=== PATIENT | male | born 1965 | race Hispanic/Latino ===

== ENCOUNTER 2017-05-06 21:08 | Emergency (ER) | payer MEDICARE ==
[2017-05-06 22:47] LABS: Hemoglobin 11.6 g/dL (14.0-18.0); Mean Corpuscular HGB CONC 32.7 g/dL (32.0-36.0); Mean Corpuscular Hemoglobin 31.6 pg (27.0-31.0); Mean Corpuscular Volume 96.7 fl (80.0-94.0); RBC Distribution Width 15.2 % (11.5-14.5); Red Blood Cell (RBC) Count 3.66 mill/uL (4.70-6.10); White Blood Cell (WBC) Count 6.1 thou/uL (4.8-10.8)
[2017-05-06 23:07] LABS: #Eosinphils 0.2 thou/uL (0.0-0.7); #Monocytes 0.7 thou/uL (0.11-0.59); #Neutrophils 4.2 thou/uL (1.40-6.50); %Basophils 0.4 % (0.0-1.0); %Eosinophils 2.9 % (0.0-10.0); %Lymphocytes 16.8 % (21.0-51.0); %Monocytes 10.8 % (0.0-10.0); %Neutrophils 69.2 % (42.0-75.0); Mean Platelet Volume 7.7 fL (7.4-10.4); PLT Morphology Comment Appears Decreased; Platelet Count 119 thou/uL (130-400)
[2017-05-06 23:08] LABS: ALT (SGPT) 13 U/L (8-55); AST (SGOT) 18 U/L (5-34); Albumin 4.3 g/dL (3.5-5.0); Alkaline Phosphatase 105 U/L (40-150); Anion Gap 17 mmol/L (10-20); BUN (Urea Nitrogen) 30 mg/dL (8.4-25.7); Bilirubin, Total 1.2 mg/dL (0.2-1.2); Calc. Creatinine Clearance 0 mL/min (70-130); Calcium 8.4 mg/dL (7.8-10.44); Carbon Dioxide 32 mmol/L (22-29); Chloride 94 mmol/L (98-107); Estimated GFR-MDRD 14; Globulin 5.8 g/dL (2.4-3.5); Glucose 102 mg/dL (70-105); Potassium 3.9 mmol/L (3.5-5.1); Protein, Total 10.1 g/dL (6.0-8.3); Sodium 139 mmol/L (136-145)
[2017-05-07] MEDS ORDERED: Lidocaine 1% w/Epinephrine 1:100K 20 ML VIAL ONE (01:15)
--- NOTE | 2017-05-07 08:13 | ULT ---
PRELIMINARY REPORT/[facility]/EMERGENCY AFTER HOURS PROCEDURE: EXAM: US Duplex Left Lower Extremity Veins CLINICAL HISTORY: 51 years old, male; Pain; Other: Lle pain, swelling, +d-dimer TECHNIQUE: Real-time ultrasound scan of the veins of the left lower extremity with color Doppler flow, spectral waveform analysis and compression. COMPARISON: No relevant prior studies available. FINDINGS: Deep veins: Normal. No DVT in the visualized common femoral, femoral, proximal deep femoral or poplit eal veins. The veins demonstrate normal color flow, are normally compressible, with normal phasic hetal w and/or augmentation response. Superficial veins: Normal. No thrombus in the visualized great saphenous vein. Soft tissues: Hypoechoic, nonvascular, complex collection within the superficial aspect of the left m edial thigh measuring 3.4 x 0.8 x 2.2 cm IMPRESSION: 1. No DVT. 2. 3.4 x 0.8 x 2.2 cm hypoechoic, nonvascular complex collection within the superficial aspect of the left medial thigh. Findings may represents sequelae of hematoma. Thank you for allowing us to participate in the care of your patient. Dictated and Authenticated by: Rohith Mary MD 05/07/2017 12:55 AM Central Time ([place] & [place]) FINAL REPORT EMERGENCY AFTER HOURS STUDY ULTRASOUND WITH DOPPLER DUPLEX VENOUS LOWER EXTREMITY LEFT: HISTORY: A 51-year-old male with left lower extremity pain, swelling, and elevated D-dimer. TECHNIQUE: Color flow Doppler, spectral waveform analysis of pulsed Doppler, and ricketts-scale imaging with thalia inderjit and augmentation, were used to evaluate the left common femoral, femoral, popliteal, posterior t ibial, and superficial femoral, veins; and the proximal portions of the profunda femoral and greater saphenous, veins. FINDINGS: There is normal compressibility, demonstration of blood flow by color Doppler and pulsed Doppler, and response to augmentation, in all interrogated veins. There is edema in the soft tissues of the left lower extremity. There is an enlarged lymph node in the left groin. There is an approximately 3.5 x 1 x 2 cm hypoechoic very superficial lesion in the left medial thigh. No internal blood flow withi n it. No major disagreement with the preliminary report by [facility]. IMPRESSION: 1. No deep vein thrombosis in the left lower extremity. 2. A thin, flat hypoechoic lesion in the very superficial soft tissues of the left medial thigh, que stionable for resolving hematoma, but exact etiology uncertain. 3. Edema in the soft tissues of the left lower extremity. arnol[] POS: [facility]
== END 2017-05-07 02:27 | disposition home or self-care (01) ==
LOC: ERS 21:08
DX: L02.416 Cutaneous abscess of left lower limb (principal); E11.22 Type 2 diabetes mellitus with diabetic chronic kidney disease; F41.9 Anxiety disorder, unspecified; E78.5 Hyperlipidemia, unspecified; I11.0 Hypertensive heart disease with heart failure; N18.6 End stage renal disease; G43.909 Migraine, unspecified, not intractable, without status migrainosus; I25.10 Atherosclerotic heart disease of native coronary artery without angina pectoris; Z79.4 Long term (current) use of insulin; Z99.2 Dependence on renal dialysis; Z87.891 Personal history of nicotine dependence; Z86.73 Personal history of transient ischemic attack (TIA), and cerebral infarction without residual deficits
CPT/HCPCS: 10061; 36415; 80053; 85025; 85379; J2001

== ENCOUNTER 2017-06-05 15:35 | Emergency (ER) | payer MEDICARE ==
[2017-06-05] MEDS ORDERED: Morphine 4 MG/ML VIAL ONE (17:01)
[2017-06-05 17:11] LABS: #Basophils 0.1 thou/uL (0.0-0.2); #Eosinphils 0.1 thou/uL (0.0-0.7); #Monocytes 0.8 thou/uL (0.11-0.59); #Neutrophils 4.3 thou/uL (1.40-6.50); %Basophils 1.8 % (0.0-1.0); %Eosinophils 1.4 % (0.0-10.0); %Lymphocytes 15.9 % (21.0-51.0); %Monocytes 13.1 % (0.0-10.0); %Neutrophils 67.8 % (42.0-75.0); Hemoglobin 11.8 g/dL (14.0-18.0); Mean Corpuscular HGB CONC 32.9 g/dL (32.0-36.0); Mean Corpuscular Hemoglobin 31.6 pg (27.0-31.0); Mean Corpuscular Volume 95.9 fl (80.0-94.0); Mean Platelet Volume 8.4 fL (7.4-10.4); Platelet Count 108 thou/uL (130-400); RBC Distribution Width 15.9 % (11.5-14.5); Red Blood Cell (RBC) Count 3.73 mill/uL (4.70-6.10); White Blood Cell (WBC) Count 6.3 thou/uL (4.8-10.8)
--- NOTE | 2017-06-05 17:23 | RAD ---
TWO VIEWS RIGHT FORELEG: Indication: Right leg swelling. FINDINGS: No acute fracture or subluxation is evident. There are prominent Monckeberg calcifications within the soft tissues of the right leg. IMPRESSION: No acute osseous abnormality. POS: [facility]
--- NOTE | 2017-06-05 17:24 | RAD ---
TWO VIEWS OF THE RIGHT ANKLE: Indication: Swelling. FINDINGS: Enthesopathic changes seen at the calcaneus. There is mild tibiotalar osteoarthrosis. There are promi nent Monckeberg calcifications in the soft tissues. There is diffuse swelling of the foreleg and ankl e. IMPRESSION: Soft tissue swelling of the foreleg and ankle. No acute osseous abnormality. POS: [facility]
[2017-06-05 17:28] LABS: ALT (SGPT) 15 U/L (8-55); AST (SGOT) 22 U/L (5-34); Albumin 4.3 g/dL (3.5-5.0); Alkaline Phosphatase 87 U/L (40-150); Anion Gap 20 mmol/L (10-20); BUN (Urea Nitrogen) 63 mg/dL (8.4-25.7); Bilirubin, Total 1.1 mg/dL (0.2-1.2); Calc. Creatinine Clearance 0 mL/min (70-130); Calcium 9.5 mg/dL (7.8-10.44); Carbon Dioxide 29 mmol/L (22-29); Chloride 94 mmol/L (98-107); Estimated GFR-MDRD 7; Globulin 5.9 g/dL (2.4-3.5); Glucose 109 mg/dL (70-105); Lipase 65 U/L (8-78); Magnesium 2.7 mg/dL (1.6-2.6); Potassium 5.5 mmol/L (3.5-5.1); Protein, Total 10.2 g/dL (6.0-8.3); Sodium 137 mmol/L (136-145)
[2017-06-05] MEDS ORDERED: Piperacillin/Tazobactam 3.375 GM in Sodium Chloride 0.9% 100 ML IVPB ONE (17:30)
== END 2017-06-05 19:45 | disposition home or self-care (01) ==
LOC: ERS 15:35
DX: E11.621 Type 2 diabetes mellitus with foot ulcer (principal); L97.519 Non-pressure chronic ulcer of other part of right foot with unspecified severity; L03.115 Cellulitis of right lower limb; I25.10 Atherosclerotic heart disease of native coronary artery without angina pectoris; E78.5 Hyperlipidemia, unspecified; I12.0 Hypertensive chronic kidney disease with stage 5 chronic kidney disease or end stage renal disease; E11.22 Type 2 diabetes mellitus with diabetic chronic kidney disease; N18.6 End stage renal disease; F41.9 Anxiety disorder, unspecified; G43.909 Migraine, unspecified, not intractable, without status migrainosus; Z99.2 Dependence on renal dialysis; Z79.4 Long term (current) use of insulin; Z86.73 Personal history of transient ischemic attack (TIA), and cerebral infarction without residual deficits; Z79.899 Other long term (current) drug therapy
CPT/HCPCS: 80053; 83605; 83690; 83735; 85025; 85652; 86140; 96365; 96367; 96375; J2270; J2543; J3370; J7050

== ENCOUNTER 2017-06-25 23:35 | Inpatient (IN) | payer MEDICARE ==
[2017-06-26 01:02] LABS: #Basophils 0.1 thou/uL (0.0-0.2); #Eosinphils 0.1 thou/uL (0.0-0.7); #Monocytes 0.7 thou/uL (0.11-0.59); #Neutrophils 5.1 thou/uL (1.40-6.50); %Basophils 1.2 % (0.0-1.0); %Eosinophils 1.8 % (0.0-10.0); %Lymphocytes 13.7 % (21.0-51.0); %Monocytes 10.5 % (0.0-10.0); %Neutrophils 72.9 % (42.0-75.0); Hemoglobin 11.2 g/dL (14.0-18.0); Mean Corpuscular HGB CONC 31.3 g/dL (32.0-36.0); Mean Corpuscular Hemoglobin 30.4 pg (27.0-31.0); Mean Corpuscular Volume 97.2 fl (80.0-94.0); Platelet Count 147 thou/uL (130-400); RBC Distribution Width 15.7 % (11.5-14.5); Red Blood Cell (RBC) Count 3.69 mill/uL (4.70-6.10)
[2017-06-26 01:15] LABS: ALT (SGPT) Less than 7 U/L (8-55); AST (SGOT) 19 U/L (5-34); Alkaline Phosphatase 109 U/L (40-150); Anion Gap 20 mmol/L (10-20); BUN (Urea Nitrogen) 45 mg/dL (8.4-25.7); Bilirubin, Total 1.2 mg/dL (0.2-1.2); Calc. Creatinine Clearance 0 mL/min (70-130); Calcium 7.6 mg/dL (7.8-10.44); Carbon Dioxide 28 mmol/L (22-29); Chloride 94 mmol/L (98-107); Estimated GFR-MDRD 8; Globulin 6.2 g/dL (2.4-3.5); Glucose 121 mg/dL (70-105); Protein, Total 10.2 g/dL (6.0-8.3); Sodium 137 mmol/L (136-145)
[2017-06-26] MEDS ORDERED: HYDROcodone/Acetaminophen 5/325 mg Tablet ONE (02:52)
[2017-06-26] MEDS ORDERED: Piperacillin/Tazobactam 3.375 GM VIAL ONE (02:53)
[2017-06-26] MEDS ORDERED: Morphine 4 MG/ML VIAL ONE (03:52)
[2017-06-26] MEDS ORDERED: Ondansetron HCl/PF 4 MG/2 ML Vial IVP PRN ×2 (04:16→07:20)
[2017-06-26] MEDS ORDERED: Ondansetron ODT 4 MG TAB SL PRN (04:16)
[2017-06-26] MEDS ORDERED: HYDROcodone/Acetaminophen 5/325 mg Tablet PO PRN ×2 (04:16)
[2017-06-26] MEDS ORDERED: HumaLOG 300 UNITS/3 ML VIAL SC PRN ×2 (07:20)
[2017-06-26] MEDS ORDERED: Loperamide HCl 2 MG CAP PO PRN (07:20)
[2017-06-26] MEDS ORDERED: Zolpidem Tartrate 5 MG TAB PO PRN (07:20)
[2017-06-26] MEDS ORDERED: Calcium Carbonate 500 MG ChewTAB PO PRN (07:20)
[2017-06-26] MEDS ORDERED: Ondansetron ODT 4 MG TAB PO PRN (07:20)
[2017-06-26] MEDS ORDERED: Eucerin (Mineral Oil/Petrolatum,White) 30 gm Jar TOP PRN (07:20)
[2017-06-26] MEDS ORDERED: Dextrose 5% in Water 1,000 ML IV PRN (07:20)
[2017-06-26] MEDS ORDERED: Chloraseptic Spray 180 ml Bottle PO PRN (07:20)
[2017-06-26] MEDS ORDERED: Dextrose 50% Abboject 50 ML SYRINGE SLOW IVP PRN (07:20)
[2017-06-26] MEDS ORDERED: Senokot 8.6 MG TAB PO PRN (07:20)
[2017-06-26] MEDS ORDERED: hydrALAZINE 20 MG/ML VIAL SLOW IVP PRN (07:20)
[2017-06-26] MEDS ORDERED: Sodium Chloride 0.65% Nasal 44 ML BOT EA NARE PRN (07:20)
[2017-06-26] MEDS ORDERED: Mag-Al 1200 mg/1200 mg/30 ML UDCUP PO PRN (07:20)
[2017-06-26] MEDS ORDERED: Diabetic Tussin 200 MG/10 ML UDCUP PO PRN (07:20)
[2017-06-26] MEDS: Famotidine 20 MG TAB PO SCH (08:47)
[2017-06-26] MEDS: Heparin 5,000 UNITS/ML VIAL SC SCH ×2 (08:47→20:33)
[2017-06-26] MEDS: Saccharomyces boulardii 250 MG CAP PO SCH (08:47)
[2017-06-26] MEDS ORDERED: Prevnar 13-Val Conj/PF 0.5 ML SYRINGE IM ONE (09:00)
[2017-06-26] MEDS: HYDROcodone/Acetaminophen 5/325 mg Tablet PO PRN (10:37)
[2017-06-26] MEDS: Clindamycin/D5W 300 MG/50 ML BAG IVPB SCH ×3 (10:38→20:32)
--- NOTE | 2017-06-26 12:37 | HP ---
PRIMARY CARE PHYSICIAN: Dr. Austin. REASON FOR ADMISSION: Infected left lower extremity ankle ulcer and bilateral lower extremity cellulitis. HISTORY OF PRESENT ILLNESS: A 51-year-old male with history of end- stage renal disease on hemodialysis, who came to emergency room for evaluation of pain in his both lower extremities. In the emergency room, patient was found with erythema and infected wound on the right ankle. The patient is a very poor historian. Patient reports that he has diabetic ulcer for a period of time. He was getting wound care, but it was not improving and now lately he has more pain and more redness and tenderness in both lower extremities and that is why he came to emergency room, but he did not have any fever at home. He was hemodynamically stable in the emergency room. Patient reports that oral antibiotic therapy did not help his symptoms and that is why we decided to keep this patient in hospital for appropriate wound care and IV antibiotic therapy. PAST MEDICAL HISTORY: 1. Diabetes type 2. 2. Hypertension. 3. ESRD on hemodialysis Tuesday, Tuesday, and Tuesday. 4. History of CVA. 5. Coronary artery disease with history of coronary artery bypass grafting. PAST SURGICAL HISTORY: CABG x3 and dialysis shunt in right upper extremity. PAST PSYCHIATRIC HISTORY: Anxiety disorder. FAMILY HISTORY: Father had stroke and diabetes to both parents. Hypertension to both parents including siblings. SOCIAL HISTORY: Patient denies any smoking. He denies any alcohol abuse. He has history of marijuana abuse in the past. EMERGENCY ROOM COURSE: Patient is given vancomycin, Zosyn, morphine 4 mg, [place] 5 mg. ALLERGIES: CEPHALOSPORIN, VANCOMYCIN, POVIDONE-IODINE SOAP. CURRENT HOME MEDICATIONS: Minoxidil 10 mg t.i.d., Renvela 4000 mg t.i.d., clonidine 0.1 mg p.o. b.i.d., doxycycline 100 mg p.o. b.i.d., vitamin D3 2000 unit p.o. daily, calcium carbonate 1000 mg t.i.d., Tylenol #3 one tablet q.6 hourly p.r.n. REVIEW OF SYSTEM: All review of system reviewed and negative except as mentioned in HPI. General: No fever, malaise, weakness Eye: no eye pain, or discharge ENT: no sore throat, hoarseness CVS: No chest pain, palpitation, syncope, orthopnea RS: No cough, hemoptysis GI: no nausea vomiting or diarrhoea : no dysuria, hematuria Psych: No anxiety or depression Hematology: No bleeding or petechie Neuro: No motor weakness, seizure, parasthesia Musculoskeletal: No joint pain Endo: no polyuria, polydipsia Skin: No rash, swelling PHYSICAL EXAMINATION: VITAL SIGNS: On arrival to emergency room, blood pressure 114/70, pulse 73, respiratory rate 18, temperature 98.5, saturation 95% on room air. Weight 88 kilograms. GENERAL: The patient is currently alert, awake, no obvious acute distress. HEAD: Normocephalic, atraumatic. EYES: Pupils round, reactive to light. Extraocular muscle intact. ENT: Oropharynx within normal limits. Moist mucous membranes. No oral lesion , no pharyngeal erythema, no exudate. NECK: Supple, no JVD, no thyromegaly, no carotid bruit, no jugular venous distention. LUNGS: Clear to auscultation without any rhonchi or rales. CARDIAC: S1 and S2 regular without any significant murmur. ABDOMEN: Soft, bowel sounds present, nontender, nondistended. No organomegaly , no mass, no suprapubic tenderness. BACK: Examination unremarkable, no CVA tenderness. EXTREMITIES: Upper extremity passive movements of all joints are normal. Lower extremity; patient does have chronic wound. Please see wound care photograph, but he has infected venous ulcer. Erythema and dry scaly hyperkeratotic skin also noted in lower extremity. Cellulitis type of picture also noted. Please see photograph of his lower extremity for further detail. NEUROLOGIC: Nonfocal examination. SIGNIFICANT LABORATORY DATA: 1. CBC: WBC 7.0, hemoglobin 11.2, platelet 147. 2. BMP: Sodium 137, potassium 5.0, chloride 94, carbon dioxide 28, anion gap 20, BUN 45, creatinine 7.14, glucose 121, and calcium 7.6. 3. LFT: AST 19, ALT less than 7, alkaline phosphatase is 109, albumin 4.0. ASSESSMENT AND PLAN/IMPRESSION: 1. Bilateral lower extremity cellulitis with infected wound at venous ulcer site. At this point, the patient has not improved and he has significant pain. We will keep this patient in hospital. He will need aggressive wound care. He will need empiric antibiotic therapy with clindamycin and levofloxacin. We will keep him in the hospital for a couple of days IV antibiotic therapy and then we will consider changing to oral antibiotic therapy based on clinical course. We will also give him probiotics, Florastor 250 mg p.o. daily. 2. End-stage renal disease on hemodialysis Tuesday, Tuesday, Tuesday. Dr. Peres will be consulted for maintenance hemodialysis while in hospital. 3. Secondary hyperparathyroidism of renal origin. The patient will have Renvela, vitamin D3 and calcium carbonate while in hospital. 4. Hypertension. We will continue minoxidil 10 mg p.o. t.i.d. and clonidine 0.1 mg p.o. b.i.d. 5. Anemia of renal disease. We will continue with Nephro-Parvin one tablet p.o. daily. 6. Deep venous thrombosis prophylaxis, heparin 5000 units subcu twice daily. 7. Gastrointestinal prophylaxis, Pepcid 20 mg p.o. daily. 8. CODE STATUS: The patient is FULL CODE. The patient does not have any surrogate decision maker. 9. Obesity, body mass index 31. Diet reeducation given. Disposition plan based on clinical course. We are expecting patient's stay in hospital more than 2 midnights. Plan of care discussed with the patient in detail. MTDD
--- NOTE | 2017-06-26 12:41 | CON ---
DATE OF CONSULTATION: 06/26/2017 HISTORY OF PRESENT ILLNESS: Mr. Harley is a 51-year-old male with ESRD and present ed with a complaint of nonhealing right foot/medial malleolus ulceration. He has been followed by [facility] and [facility]. In addition, he has received several courses of antibiotics. We are being consulted for his maintenance hemodialysis. REVIEW OF SYSTEMS: Positive for right foot swelling and nonhealing medial malleolus ulcers. No ches t pain. Denies any fever or chills. No eye pain, no sore throat. No nausea, no vomiting. Appetite fair. Energy level is decreased. Occasional joint pains. No new skin rash. No shortness of breat h, no chest pain, no syncopal episode, no hematochezia, no melena, hematemesis, no abdominal pain, no diplopia. No dysuria. PAST MEDICAL HISTORY: Includes the followin. Coronary artery disease. 2. Peripheral vascular disease. 3. Type 2 diabetes mellitus. 4. Pulmonary hypertension. 5. COPD. 6. ESRD. 7. Longstanding hypertension. 8. He has chronic back ulcerations status post left foot infection. 9. Status post pneumonia. 10. Status post CVA. 11. Status post CHF. 12. Hyperlipidemia. PAST SURGICAL HISTORY: 1. Status post I&D of left foot. 2. Status post cardiac catheterization. 3. Status post AV fistula placement. 4. Status post appendectomy. 5. Status post eye surgery. 6. Status post cuffed hemodialysis catheter placement. SOCIAL HISTORY: Patient currently lives alone. He lives in [place]. 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 Sedentary lifestyle. Currently, not smoking. No alcohol use. Status post multiple blood yanez sfusions. No drug abuse. 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 FAMILY HISTORY: No family history of ESRD. ALLERGIES: None. TRAUMA: None. IMMUNIZATIONS: Up to date. HOSPITALIZATIONS: Please see past medical history. PHYSICAL EXAMINATION: VITAL SIGNS: Blood pressure is 147/78, heart rate 75, respiratory rate 16, temperature 97.8, pulse o x 95%. GENERAL: Awake, sitting comfortable, not in distress. SKIN: Adequate turgor. HEENT: Pinkish conjunctivae, anicteric sclerae. NECK: No neck mass, no carotid bruits, no JVD. CHEST: No deformities. LUNGS: Clear breath sounds, no wheezing, no crackles. HEART: Normal sinus rhythm. No murmur, no gallops, no rubs. ABDOMEN: Globular, soft, nontender, no masses. EXTREMITIES: Positive for edema. Positive for right medial malleolus ulceration. NEUROLOGIC: Awake, oriented to 3 spheres. Moving all extremities. No tremors. No asterixis. No a taxia. MEDICATIONS: Of 06/26/2017, [place] 5/325 q.4 p.r.n., clindamycin 300 mg IV q.6 h., Pepcid 20 mg every day, heparin 5000 units subcu b.i.d., hydralazine 10 mg IV q.4 h. p.r.n., Humalog sliding scale, Lev aquin 500 mg every other day, Imodium p.r.n., Zofran 4 mg IV q.6 h. p.r.n., and Ambien 5 mg at bedtim e p.r.n. LABORATORY DATA: Of 06/26/2017, white count 7, hemoglobin 11.2. Sodium 137, potassium 5, chloride 9 4, carbon dioxide 28, BUN 45, creatinine 7.14, glucose 121, calcium is 7.6, AST 19, ALT 7. Ankle x-r ay of 06/05/2017 shows soft tissue swelling. 06/05/2017, X-ray of the tibia, fibula, right leg, no a cute osseous abnormality. ASSESSMENT AND PLAN: 1. Nonhealing right medial malleolus ulceration. Consider surgical consult. He may need further neumann rgical debridement - ? There may be an etiology of impairment of the arterial flow due to the nonhea ling wound. Please note the previous x-ray early this month showed no evidence of osteomyelitis. Co ntinuing clindamycin and Levaquin. 2. End-stage renal disease, stable. We will continue current Tuesday, Tuesday, Tuesday hemodialysis regimen. Review of the last Kt/V suggests is adequately dialyzed with the current dialysis regimen. I have made arrangements for his dialysis tomorrow. Overall, agree with current management. Recheck base met and CBC in a.m.
[2017-06-26] MEDS: Sevelamer Carbonate 800 MG TAB PO SCH ×2 (13:24→16:38)
[2017-06-26] MEDS: Calcium Carbonate 500 MG ChewTAB PO SCH ×2 (15:30→20:33)
[2017-06-26] MEDS: Minoxidil 10 MG TAB PO SCH ×2 (15:30→20:37)
[2017-06-26] MEDS: cloNIDine 0.1 MG TAB PO SCH (20:33)
[2017-06-27] MEDS: Clindamycin/D5W 300 MG/50 ML BAG IVPB SCH ×4 (02:25→20:24)
[2017-06-27 04:50] LABS: #Basophils 0.1 thou/uL (0.0-0.2); #Eosinphils 0.1 thou/uL (0.0-0.7); #Lymphocytes 0.9 thou/uL (1.20-3.40); #Neutrophils 5.6 thou/uL (1.40-6.50); %Basophils 0.8 % (0.0-1.0); %Eosinophils 0.9 % (0.0-10.0); %Lymphocytes 11.5 % (21.0-51.0); %Monocytes 13.5 % (0.0-10.0); %Neutrophils 73.4 % (42.0-75.0); Hemoglobin 11.5 g/dL (14.0-18.0); Mean Corpuscular HGB CONC 32.9 g/dL (32.0-36.0); Mean Corpuscular Hemoglobin 31.5 pg (27.0-31.0); Mean Corpuscular Volume 95.8 fl (80.0-94.0); Mean Platelet Volume 8.5 fL (7.4-10.4); Platelet Count 127 thou/uL (130-400); RBC Distribution Width 15.9 % (11.5-14.5); Red Blood Cell (RBC) Count 3.64 mill/uL (4.70-6.10); White Blood Cell (WBC) Count 7.7 thou/uL (4.8-10.8)
[2017-06-27 04:57] LABS: Anion Gap 26 mmol/L (10-20); BUN (Urea Nitrogen) 64 mg/dL (8.4-25.7); BUN/Creatinine Ratio 7.47; Calc. Creatinine Clearance 13 mL/min (70-130); Calcium 7.7 mg/dL (7.8-10.44); Carbon Dioxide 24 mmol/L (22-29); Chloride 92 mmol/L (98-107); Estimated GFR-MDRD 7; Glucose 92 mg/dL (70-105); Phosphorus 6.4 mg/dL (2.3-4.7); Sodium 135 mmol/L (136-145)
[2017-06-27 04:59] LABS: Potassium 6.6 mmol/L (3.5-5.1)
[2017-06-27] MEDS: Sevelamer Carbonate 800 MG TAB PO SCH ×3 (07:27→16:31)
[2017-06-27] MEDS: Saccharomyces boulardii 250 MG CAP PO SCH (07:28)
[2017-06-27] MEDS: Calcium Carbonate 500 MG ChewTAB PO SCH ×3 (07:28→20:32)
[2017-06-27] MEDS: cloNIDine 0.1 MG TAB PO SCH ×2 (07:28→20:32)
[2017-06-27] MEDS: Heparin 5,000 UNITS/ML VIAL SC SCH ×2 (07:29→20:31)
[2017-06-27] MEDS: Minoxidil 10 MG TAB PO SCH ×3 (07:34→20:31)
[2017-06-27] MEDS: Ferrous Sulfate 325 MG TAB PO SCH (07:55)
[2017-06-27] MEDS: Folic Acid/Vit B Comp W-C PO SCH (07:55)
[2017-06-27] MEDS ORDERED: Non-Formulary Item 1 EACH (Cholecalciferol (Vitamin D3) [Vitamin D3] 2,000 UNIT) PO SCH (09:00)
[2017-06-27 09:10] VITALS: BMI 32.4
--- NOTE | 2017-06-27 09:19 | PRG ---
DATE OF SERVICE: 06/27/2017 SUBJECTIVE: Mr. Arizmendi is a 51-year-old male with known history of end-stage renal diseas e - on maintenance hemodialysis and admitted for right foot infection. He is currently receiving IV antibiotics for this right foot infection. He is also complaining of occasional headache. OBJECTIVE: VITAL SIGNS: Blood pressure 159/94, heart rate 81, respiratory rate 22, temperature 98.2, pulse ox 9 3%. GENERAL: Noted to be awake, alert, comfortable, not in distress. SKIN: Adequate turgor. HEENT: He has pinkish conjunctivae, anicteric sclerae. NECK: No neck mass, no carotid bruits, no JVD. CHEST: No deformities. LUNGS: Clear breath sounds. No wheezing, no crackles. HEART: Normal sinus rhythm. He has a grade 3/6 systolic murmur. No gallops, no rubs. ABDOMEN: Globular, soft, nontender, no masses. EXTREMITIES: Trace edema. MEDICATIONS: Of 06/27/2017 reviewed. LABORATORY: Of 06/27/2017, white count 7.7, hemoglobin 11.5. Sodium 135, potassium 6.6, chloride 92 , carbon dioxide 24, BUN 64, creatinine 8.57, glucose 92, calcium 7.7, phosphorus 6.4. ASSESSMENT AND PLAN: 1. Hyperkalemia. The patient currently on Tums at 1000 mg p.o. t.i.d. We will give him one ampule of calcium gluconate as a slow push. We will schedule him for hemodialysis this morning. 2. End-stage renal disease, stable. We will continue current Tuesday, Tuesday, Tuesday hemodialysis regimen. Again, fluid removal only as tolerated by the patient. 3. Right medial malleolus foot infection - currently on IV antibiotics. We will recheck base met and CBC in a.m.
--- NOTE | 2017-06-27 11:22 | PDOC.PN ---
- Subjective Encounter Start Date: 06/27/17 Encounter Start Time: 08:00 Patient seen and examined. No new complaints. No overnight events - Objective Resuscitation Status: Resuscitation Status FULL:Full Resuscitation MAR Reviewed: Yes Vital Signs & Weight: Vital Signs (12 hours) Temp Pulse Resp BP BP Pulse Ox 06/27/17 08:00 98.3 F 81 22 H 96 06/27/17 07:50 98.3 F 81 22 H 159/94 H 93 L 06/27/17 07:28 148/95 H 06/27/17 04:00 98.3 F 86 18 143/85 H 94 L 06/27/17 00:00 98.2 F 72 20 147/86 H 96 Weight Admit Weight 197 lb 1.6 oz Weight 201 lb I&O: 06/26/17 06/27/17 06/28/17 06:59 06:59 06:59 Intake Total 100 1130 240 Output Total 0 Balance 100 1130 240 Result Diagrams: 06/27/17 04:01 06/27/17 04:01 Additional Labs: Accuchecks 06/27/17 06/26/17 06/26/17 03:20 20:14 16:15 POC Glucose 97 96 100 06/26/17 11:50 POC Glucose 111 H Phys Exam - Physical Examination Constitutional: NAD HEENT: PERRLA, moist MMs, sclera anicteric Neck: no JVD, supple Respiratory: no wheezing, no rales, no rhonchi Cardiovascular: RRR, no significant murmur, no rub Gastrointestinal: soft, non-tender, no distention, positive bowel sounds extrimity cellulitis, chronic ulcer with infection Neurological: non-focal, normal sensation Lymphatic: no nodes Psychiatric: normal affect, A&O x 3 Skin: no rash, normal turgor Dx/Plan (1) Bilateral cellulitis of lower leg Code(s): L03.116 - CELLULITIS OF LEFT LOWER LIMB; L03.115 - CELLULITIS OF RIGHT LOWER LIMB Status: Acute (2) Diabetic foot infection Code(s): E11.628 - TYPE 2 DIABETES MELLITUS WITH OTHER SKIN COMPLICATIONS; L08.9 - LOCAL INFECTION OF THE SKIN AND SUBCUTANEOUS TISSUE, UNSP Status: Acute (3) Hyperkalemia Code(s): E87.5 - HYPERKALEMIA Status: Acute (4) Anemia of renal disease Code(s): D63.1 - ANEMIA IN CHRONIC KIDNEY DISEASE Status: Chronic (5) Chronic ulcer of leg Code(s): L97.909 - NON-PRS CHRONIC ULC UNSP PRT OF UNSP LOW LEG W UNSP SEVERITY Status: Chronic Comment: (6) DM type 2 (diabetes mellitus, type 2) Status: Chronic (7) ESRD (end stage renal disease) on dialysis Code(s): N18.6 - END STAGE RENAL DISEASE; Z99.2 - DEPENDENCE ON RENAL DIALYSIS Status: Chronic (8) HTN (hypertension) Code(s): I10 - ESSENTIAL (PRIMARY) HYPERTENSION Status: Chronic Qualifiers: (9) Obesity (BMI 30.0-34.9) Code(s): E66.9 - OBESITY, UNSPECIFIED Status: Chronic (10) PVD (peripheral vascular disease) Code(s): I73.9 - PERIPHERAL VASCULAR DISEASE, UNSPECIFIED Status: Chronic (11) Secondary hyperparathyroidism of renal origin Code(s): N25.81 - SECONDARY HYPERPARATHYROIDISM OF RENAL ORIGIN Status: Chronic - Plan cont current plan of care, continue antibiotics * continue levaquin and clindamycin * today HD * repeat labs tomorrow * low potassium diet * medication reviewed as below * symptomatic treatment * wound care. Review of Systems - Review of Systems ENT: negative: Ear Pain, Ear Discharge, Nose Pain, Nose Discharge, Nose Congestion, Mouth Pain, Mouth Swelling, Throat Pain, Throat Swelling, Other Respiratory: negative: Cough, Dry, Shortness of Breath, Hemoptysis, SOB with Excertion, Pleuritic Pain, Sputum, Wheezing Cardiovascular: negative: chest pain, palpitations, orthopnea, paroxysmal nocturnal dyspnea, edema, light headedness, other Gastrointestinal: negative: Nausea, Vomiting, Abdominal Pain, Diarrhea, Constipation, Melena, Hematochezia, Other Genitourinary: negative: Dysuria, Frequency, Incontinence, Hematuria, Retention , Other Musculoskeletal: Leg Pain. negative: Neck Pain, Shoulder Pain, Arm Pain, Back Pain, Hand Pain, Foot Pain, Other Skin: negative: Rash, Lesions, Dall[place], Bruising, Other - Medications/Allergies Allergies/Adverse Reactions: Allergies Allergy/AdvReac Type Severity Reaction Status Date / Time Cephalosporins Allergy Severe Unverified 06/26/17 23:38 povidone-iodine Allergy Verified 06/26/17 23:38 [From Betadine] soap [From Betadine] Allergy Verified 06/26/17 23:38 vancomycin Allergy Unverified 06/26/17 23:38 Medications: Current Medications Acetaminophen (Tylenol) 650 mg PO Q4H PRN PRN Reason: Headache/Fever or Pain Hydrocodone Bitart/Acetaminophen ([place] 5/325) 1 tab PO Q4H PRN PRN Reason: Moderate Pain (4-6) Last Admin: 06/26/17 10:37 Dose: 1 tab Al Hydroxide/Mg Hydroxide (Maalox) 30 ml PO Q6H PRN PRN Reason: Heartburn or Indigestion Calcium Carbonate (Tums) 1,000 mg PO Q4H PRN PRN Reason: Heartburn or Indigestion Calcium Carbonate (Tums) 1,000 mg PO TID [facility] Last Admin: 06/27/17 07:28 Dose: 1,000 mg Cholecalciferol (Vitamin D3) 2,000 units PO DAILY [facility] Last Admin: 06/27/17 07:28 Dose: 2,000 units Clindamycin Phosphate/Dextrose (Cleocin) 300 mg IVPB 0300,0900,1500,2100 [facility] Last Admin: 06/27/17 07:34 Dose: 300 mg Clonidine (Catapres) 0.1 mg PO BID [facility] Last Admin: 06/27/17 07:28 Dose: 0.1 mg Dextrose/Water (Dextrose 50%) 25 gm SLOW IVP PRN PRN PRN Reason: Hypoglycemia Famotidine (Pepcid) 20 mg PO Q2DAYS@0900 [facility] Last Admin: 06/26/17 08:47 Dose: 20 mg Ferrous Sulfate (Feosol) 325 mg PO QAM[facility] Last Admin: 06/27/17 07:55 Dose: 325 mg Glucagon (Glucagon) 1 mg IM PRN PRN PRN Reason: Hypoglycemia Guaifenesin (Robitussin Sf) 200 mg PO Q4H PRN PRN Reason: Cough Heparin Sodium (Porcine) (Heparin) 5,000 units SC BID [facility] Last Admin: 06/27/17 07:29 Dose: 5,000 units Hydralazine HCl (Apresoline) 10 mg SLOW IVP Q4H PRN PRN Reason: Systolic BP > 180 Levofloxacin 500 mg/ Device 100 mls @ 100 mls/hr IVPB Q2DAYS@0800 [facility] Last Admin: 06/26/17 08:47 Dose: 100 mls Dextrose/Water (D5w) 1,000 mls @ 0 mls/hr IV .Q0M PRN; As Directed PRN Reason: Hypoglycemia Insulin Human Lispro (Humalog) 0 units SC .MILD SLIDING SCALE PRN PRN Reason: Mild Correctional Scale Insulin Human Lispro (Humalog) 0 units SC .BEDTIME SLIDING SC PRN PRN Reason: Bedtime Correctional Scale Loperamide HCl (Imodium) 2 mg PO PRN PRN PRN Reason: Diarrhea/Loose Stools Magnesium Hydroxide (Milk Of Magnesium) 30 ml PO DAILYPRN PRN PRN Reason: Constipation Mineral Oil/White Petrolatum (Eucerin Cream) 0 gm TOP BIDPRN PRN PRN Reason: Dry Skin Minoxidil (Minoxidil) 10 mg PO TID [facility] Last Admin: 06/27/17 07:34 Dose: 10 mg Miscellaneous Medication (Pharmacy To Dose) 1 each IVPB .LEVAQUIN CLINDAMYCI PRN PRN Reason: Pharmacy to dose Ondansetron HCl (Zofran Odt) 4 mg PO Q6H PRN PRN Reason: Nausea/Vomiting Ondansetron HCl (Zofran) 4 mg IVP Q6H PRN PRN Reason: Nausea/Vomiting Phenol (Chloraseptic [place] 180 Ml Bot) 0 ml PO PRN PRN PRN Reason: Sore Throat Saccharomyces Boulardii (Florastor) 250 mg PO DAILY [facility] Last Admin: 06/27/17 07:28 Dose: 250 mg Senna (Senokot) 2 tab PO HSPRN PRN PRN Reason: Constipation Sevelamer Carbonate (Renvela) 4,000 mg PO TID-[facility] Last Admin: 06/27/17 07:27 Dose: 4,000 mg Sodium Chloride ([place] Nasal [place] 0.65%) 0 ml EA NARE QIDPRN PRN PRN Reason: Nasal Congestion Sodium Chloride (Flush - Normal Saline) 10 ml IVF Q12HR [facility] Last Admin: 06/27/17 07:29 Dose: 10 ml Sodium Chloride (Flush - Normal Saline) 10 ml IVF PRN PRN PRN Reason: Saline Flush Vitamin B Complex/Vit C/Folic Acid (Nephro-Parvin Tablet) 1 tab PO DAILY [facility] Last Admin: 06/27/17 07:55 Dose: 1 tab Zolpidem Tartrate (Ambien) 5 mg PO HSPRN PRN PRN Reason: Insomnia
[2017-06-27] MEDS: HYDROcodone/Acetaminophen 5/325 mg Tablet PO PRN (16:30)
[2017-06-28] MEDS: Clindamycin/D5W 300 MG/50 ML BAG IVPB SCH ×4 (02:50→20:23)
[2017-06-28 05:27] LABS: Anion Gap 16 mmol/L (10-20); BUN (Urea Nitrogen) 43 mg/dL (8.4-25.7); Calc. Creatinine Clearance 17 mL/min (70-130); Calcium 7.9 mg/dL (7.8-10.44); Carbon Dioxide 30 mmol/L (22-29); Chloride 94 mmol/L (98-107); Estimated GFR-MDRD 9; Glucose 118 mg/dL (70-105); Potassium 5.5 mmol/L (3.5-5.1); Sodium 134 mmol/L (136-145)
[2017-06-28 05:30] LABS: Band 1 % (5-11); Eosinophils 1 % (0-10); Hemoglobin 10.7 g/dL (14.0-18.0); Lymphocytes 21 % (21-51); MDiff Complete? YES; Mean Corpuscular HGB CONC 32.5 g/dL (32.0-36.0); Mean Corpuscular Hemoglobin 30.8 pg (27.0-31.0); Mean Corpuscular Volume 94.6 fl (80.0-94.0); Monocytes 9 % (0-10); Neutrophil 66 % (42-75); PLT Morphology Comment Appears Decreased; Platelet Count 120 thou/uL (130-400); RBC Distribution Width 15.5 % (11.5-14.5); Red Blood Cell (RBC) Count 3.48 mill/uL (4.70-6.10); White Blood Cell (WBC) Count 6.1 thou/uL (4.8-10.8)
[2017-06-28] MEDS: Heparin 5,000 UNITS/ML VIAL SC SCH ×2 (07:41→20:23)
[2017-06-28] MEDS: Sevelamer Carbonate 800 MG TAB PO SCH ×3 (07:42→17:26)
[2017-06-28] MEDS: cloNIDine 0.1 MG TAB PO SCH ×2 (07:42→20:22)
[2017-06-28] MEDS: Calcium Carbonate 500 MG ChewTAB PO SCH ×3 (07:42→20:22)
[2017-06-28] MEDS: Folic Acid/Vit B Comp W-C PO SCH (07:43)
[2017-06-28] MEDS: Famotidine 20 MG TAB PO SCH (07:43)
[2017-06-28] MEDS: Saccharomyces boulardii 250 MG CAP PO SCH (07:43)
[2017-06-28] MEDS: Ferrous Sulfate 325 MG TAB PO SCH (07:44)
[2017-06-28] MEDS: Minoxidil 10 MG TAB PO SCH ×3 (07:47→20:22)
--- NOTE | 2017-06-28 08:49 | PDOC.PN ---
- Subjective Encounter Start Date: 06/28/17 Encounter Start Time: 07:30 Patient seen and examined. No new complaints. No overnight events - Objective Resuscitation Status: Resuscitation Status FULL:Full Resuscitation MAR Reviewed: Yes Vital Signs & Weight: Vital Signs (12 hours) Temp Pulse Resp BP BP Pulse Ox 06/28/17 07:42 121/71 06/28/17 04:00 98.4 F 67 18 121/70 92 L Weight Admit Weight 197 lb 1.6 oz Weight 201 lb I&O: 06/27/17 06/28/17 06/29/17 06:59 06:59 06:59 Intake Total 1130 980 Output Total 0 Balance 1130 980 Result Diagrams: 06/28/17 04:52 06/28/17 04:52 Additional Labs: Accuchecks 06/28/17 06/27/17 06/27/17 03:55 19:38 16:34 POC Glucose 116 H 149 H 112 H Phys Exam - Physical Examination Constitutional: NAD HEENT: PERRLA, moist MMs, sclera anicteric Neck: no JVD, supple Respiratory: no wheezing, no rales, no rhonchi Cardiovascular: RRR, no significant murmur, no rub Gastrointestinal: soft, non-tender, no distention, positive bowel sounds Musculoskeletal: no edema, pulses present cellulitis both leg improving, chronic ulcer with dressing Neurological: non-focal, normal sensation Lymphatic: no nodes Psychiatric: normal affect, A&O x 3 Skin: no rash, normal turgor Dx/Plan (1) Bilateral cellulitis of lower leg Code(s): L03.116 - CELLULITIS OF LEFT LOWER LIMB; L03.115 - CELLULITIS OF RIGHT LOWER LIMB Status: Acute (2) Diabetic foot infection Code(s): E11.628 - TYPE 2 DIABETES MELLITUS WITH OTHER SKIN COMPLICATIONS; L08.9 - LOCAL INFECTION OF THE SKIN AND SUBCUTANEOUS TISSUE, UNSP Status: Acute (3) Hyperkalemia Code(s): E87.5 - HYPERKALEMIA Status: Acute (4) Anemia of renal disease Code(s): D63.1 - ANEMIA IN CHRONIC KIDNEY DISEASE Status: Chronic (5) Chronic ulcer of leg Code(s): L97.909 - NON-PRS CHRONIC ULC UNSP PRT OF UNSP LOW LEG W UNSP SEVERITY Status: Chronic Comment: (6) DM type 2 (diabetes mellitus, type 2) Status: Chronic (7) ESRD (end stage renal disease) on dialysis Code(s): N18.6 - END STAGE RENAL DISEASE; Z99.2 - DEPENDENCE ON RENAL DIALYSIS Status: Chronic (8) HTN (hypertension) Code(s): I10 - ESSENTIAL (PRIMARY) HYPERTENSION Status: Chronic Qualifiers: (9) Obesity (BMI 30.0-34.9) Code(s): E66.9 - OBESITY, UNSPECIFIED Status: Chronic (10) PVD (peripheral vascular disease) Code(s): I73.9 - PERIPHERAL VASCULAR DISEASE, UNSPECIFIED Status: Chronic (11) Secondary hyperparathyroidism of renal origin Code(s): N25.81 - SECONDARY HYPERPARATHYROIDISM OF RENAL ORIGIN Status: Chronic - Plan cont current plan of care, continue antibiotics * continue clindamycin and levaquin * wound care * Potassium improving with dialysis * repeat labs tomorrow * medication reviewed as below * symptomatic treatment * medically stable with current treatment. Review of Systems - Review of Systems Constitutional: negative: fever, chills, sweats, weakness, malaise, other ENT: negative: Ear Pain, Ear Discharge, Nose Pain, Nose Discharge, Nose Congestion, Mouth Pain, Mouth Swelling, Throat Pain, Throat Swelling, Other Respiratory: negative: Cough, Dry, Shortness of Breath, Hemoptysis, SOB with Excertion, Pleuritic Pain, Sputum, Wheezing Cardiovascular: negative: chest pain, palpitations, orthopnea, paroxysmal nocturnal dyspnea, edema, light headedness, other Gastrointestinal: negative: Nausea, Vomiting, Abdominal Pain, Diarrhea, Constipation, Melena, Hematochezia, Other Genitourinary: negative: Dysuria, Frequency, Incontinence, Hematuria, Retention , Other Musculoskeletal: negative: Neck Pain, Shoulder Pain, Arm Pain, Back Pain, Hand Pain, Leg Pain, Foot Pain, Other Skin: negative: Rash, Lesions, Dallin, Bruising, Other - Medications/Allergies Allergies/Adverse Reactions: Allergies Allergy/AdvReac Type Severity Reaction Status Date / Time Cephalosporins Allergy Severe Unverified 06/26/17 23:38 povidone-iodine Allergy Verified 06/26/17 23:38 [From Betadine] soap [From Betadine] Allergy Verified 06/26/17 23:38 vancomycin Allergy Unverified 06/26/17 23:38 Medications: Current Medications Acetaminophen (Tylenol) 650 mg PO Q4H PRN PRN Reason: Headache/Fever or Pain Hydrocodone Bitart/Acetaminophen ([place] 5/325) 1 tab PO Q4H PRN PRN Reason: Moderate Pain (4-6) Last Admin: 06/27/17 16:30 Dose: 1 tab Al Hydroxide/Mg Hydroxide (Maalox) 30 ml PO Q6H PRN PRN Reason: Heartburn or Indigestion Calcium Carbonate (Tums) 1,000 mg PO Q4H PRN PRN Reason: Heartburn or Indigestion Calcium Carbonate (Tums) 1,000 mg PO TID [facility] Last Admin: 06/28/17 07:42 Dose: 1,000 mg Cholecalciferol (Vitamin D3) 2,000 units PO DAILY [facility] Last Admin: 06/28/17 07:43 Dose: 2,000 units Clindamycin Phosphate/Dextrose (Cleocin) 300 mg IVPB 0300,0900,1500,2100 [facility] Last Admin: 06/28/17 07:37 Dose: 300 mg Clonidine (Catapres) 0.1 mg PO BID [facility] Last Admin: 06/28/17 07:42 Dose: 0.1 mg Dextrose/Water (Dextrose 50%) 25 gm SLOW IVP PRN PRN PRN Reason: Hypoglycemia Famotidine (Pepcid) 20 mg PO Q2DAYS@0900 [facility] Last Admin: 06/28/17 07:43 Dose: 20 mg Ferrous Sulfate (Feosol) 325 mg PO QAM-WM [facility] Last Admin: 06/28/17 07:44 Dose: 325 mg Glucagon (Glucagon) 1 mg IM PRN PRN PRN Reason: Hypoglycemia Guaifenesin (Robitussin Sf) 200 mg PO Q4H PRN PRN Reason: Cough Heparin Sodium (Porcine) (Heparin) 5,000 units SC BID [facility] Last Admin: 06/28/17 07:41 Dose: 5,000 units Hydralazine HCl (Apresoline) 10 mg SLOW IVP Q4H PRN PRN Reason: Systolic BP > 180 Levofloxacin 500 mg/ Device 100 mls @ 100 mls/hr IVPB Q2DAYS@0800 [facility] Last Admin: 06/28/17 07:37 Dose: 100 mls Dextrose/Water (D5w) 1,000 mls @ 0 mls/hr IV .Q0M PRN; As Directed PRN Reason: Hypoglycemia Insulin Human Lispro (Humalog) 0 units SC .MILD SLIDING SCALE PRN PRN Reason: Mild Correctional Scale Insulin Human Lispro (Humalog) 0 units SC .BEDTIME SLIDING SC PRN PRN Reason: Bedtime Correctional Scale Loperamide HCl (Imodium) 2 mg PO PRN PRN PRN Reason: Diarrhea/Loose Stools Magnesium Hydroxide (Milk Of Magnesium) 30 ml PO DAILYPRN PRN PRN Reason: Constipation Mineral Oil/White Petrolatum (Eucerin Cream) 0 gm TOP BIDPRN PRN PRN Reason: Dry Skin Minoxidil (Minoxidil) 10 mg PO TID [facility] Last Admin: 06/28/17 07:47 Dose: 10 mg Miscellaneous Medication (Pharmacy To Dose) 1 each IVPB .LEVAQUIN CLINDAMYCI PRN PRN Reason: Pharmacy to dose Ondansetron HCl (Zofran Odt) 4 mg PO Q6H PRN PRN Reason: Nausea/Vomiting Ondansetron HCl (Zofran) 4 mg IVP Q6H PRN PRN Reason: Nausea/Vomiting Phenol (Chloraseptic [place] 180 Ml Bot) 0 ml PO PRN PRN PRN Reason: Sore Throat Saccharomyces Boulardii (Florastor) 250 mg PO DAILY [facility] Last Admin: 06/28/17 07:43 Dose: 250 mg Senna (Senokot) 2 tab PO HSPRN PRN PRN Reason: Constipation Sevelamer Carbonate (Renvela) 4,000 mg PO TID[facility] Last Admin: 06/28/17 07:42 Dose: 4,000 mg Sodium Chloride ([place] Nasal [place] 0.65%) 0 ml EA NARE QIDPRN PRN PRN Reason: Nasal Congestion Sodium Chloride (Flush - Normal Saline) 10 ml IVF Q12HR [facility] Last Admin: 06/28/17 07:44 Dose: 10 ml Sodium Chloride (Flush - Normal Saline) 10 ml IVF PRN PRN PRN Reason: Saline Flush Vitamin B Complex/Vit C/Folic Acid (Nephro-Parvin Tablet) 1 tab PO DAILY [facility] Last Admin: 06/28/17 07:43 Dose: 1 tab Zolpidem Tartrate (Ambien) 5 mg PO HSPRN PRN PRN Reason: Insomnia Last Admin: 06/28/17 01:08 Dose: 5 mg
[2017-06-28] MEDS: HYDROcodone/Acetaminophen 5/325 mg Tablet PO PRN ×3 (09:39→19:31)
[2017-06-28] MEDS: Milk Of Magnesia 30 ML UDCUP PO PRN (09:41)
--- NOTE | 2017-06-28 10:16 | PRG ---
DATE OF SERVICE: 06/28/2017 SUBJECTIVE: Mr. Harley is a 51-year-old male with ESRD and admitted for foot pain - right medial malleolus ulceration. Wound Care is following. In addition, he has been started on I V antibiotics. He continues to be on maintenance hemodialysis, and doing well. No new complaints to day except for the right foot pain. He had Wound Care treat him earlier. I have instructed the nurs e to go ahead and proceed with giving him his scheduled [place]. No complaints of chest pain or shortn ess of breath. OBJECTIVE: VITAL SIGNS: Blood pressure 121/71, heart rate 67, respiratory rate 18, temperature 98.4, pulse ox 9 2%. GENERAL EXAM: Noted to be awake, sitting comfortable, not in overt distress. SKIN: Adequate turgor. HEENT: He has pinkish conjunctivae. Anicteric sclerae. NECK: No neck mass, no carotid bruits, no JVD. CHEST: No deformities. LUNGS: Clear breath sounds. No wheezing, no crackles. HEART: Normal sinus rhythm. No murmur, no gallops, no rubs. ABDOMEN: Globular, soft, nontender, no masses. EXTREMITIES: No edema. Positive for right medial malleolus ulceration. Medications of 06/28/2017 were reviewed. LABORATORY DATA: Laboratories of 06/28/2017, white count 6.1, hemoglobin 10.7, hematocrit 32.9. Sod ium 134, potassium 5.5, chloride 94, carbon dioxide 30, BUN 43, creatinine 6.47, glucose 118, calcium 7.9. ASSESSMENT AND PLAN: 1. End-stage renal disease, stable. No indication for any dialytic intervention. Continue supporti ve care. Continue low potassium diet. The patient is not in volume overload. His potassium is acce ptable. 2. Mild hyperkalemia. Continue dietary restriction on potassium. 3. Right medial malleolus ulceration - Wound Care following. In addition, the patient is currently receiving IV antibiotics. Overall, I agree with current management.
[2017-06-28] MEDS ORDERED: Polyethylene Glycol 3350 17 GM Packet PO SCH (18:00)
[2017-06-29] MEDS: Clindamycin/D5W 300 MG/50 ML BAG IVPB SCH ×5 (02:05→21:15)
[2017-06-29 04:47] LABS: Anion Gap 23 mmol/L (10-20); BUN (Urea Nitrogen) 59 mg/dL (8.4-25.7); Calc. Creatinine Clearance 15 mL/min (70-130); Calcium 7.7 mg/dL (7.8-10.44); Carbon Dioxide 26 mmol/L (22-29); Chloride 91 mmol/L (98-107); Estimated GFR-MDRD 8; Glucose 91 mg/dL (70-105); Sodium 133 mmol/L (136-145)
[2017-06-29 04:49] LABS: Potassium 6.6 mmol/L (3.5-5.1)
[2017-06-29 06:00] LABS: Anisocytosis SLIGHT = 6-15 cells (100X) (0-5/hpf); Eosinophils 1 % (0-10); Hemoglobin 10.6 g/dL (14.0-18.0); Lymphocytes 14 % (21-51); MDiff Complete? YES; Mean Corpuscular HGB CONC 32.7 g/dL (32.0-36.0); Mean Corpuscular Hemoglobin 30.6 pg (27.0-31.0); Mean Corpuscular Volume 93.6 fl (80.0-94.0); Mean Platelet Volume 7.5 fL (7.4-10.4); Monocytes 19 % (0-10); Neutrophil 66 % (42-75); PLT Morphology Comment Appears Decreased; Platelet Count 123 thou/uL (130-400); RBC Distribution Width 15.6 % (11.5-14.5); Red Blood Cell (RBC) Count 3.48 mill/uL (4.70-6.10); White Blood Cell (WBC) Count 6.1 thou/uL (4.8-10.8)
[2017-06-29] MEDS: HYDROcodone/Acetaminophen 5/325 mg Tablet PO PRN ×2 (06:28→20:28)
[2017-06-29] MEDS: Sevelamer Carbonate 800 MG TAB PO SCH ×3 (08:00→17:20)
[2017-06-29] MEDS: Ferrous Sulfate 325 MG TAB PO SCH (08:00)
[2017-06-29] MEDS: Minoxidil 10 MG TAB PO SCH ×3 (09:00→20:38)
[2017-06-29] MEDS: cloNIDine 0.1 MG TAB PO SCH ×2 (09:00→20:30)
[2017-06-29] MEDS: Calcium Carbonate 500 MG ChewTAB PO SCH ×3 (09:00→20:31)
[2017-06-29] MEDS: Heparin 5,000 UNITS/ML VIAL SC SCH ×2 (09:00→20:31)
--- NOTE | 2017-06-29 09:19 | PRG ---
DATE OF SERVICE: 06/29/2017 SUBJECTIVE: Mr. Ugo Whitehead is a 51-year-old male with ESRD and currently undergoing the [facility] hemodialysis. I am at the bedside supervising his dialysis. He does complain still of the right foot pain where his medial malleolus ulceration is located. He i s getting around the clock [place]. No other complaints today, no chest pain or shortness of breath. PHYSICAL EXAMINATION: VITAL SIGNS: Blood pressure is 170/91, heart rate 67, respiratory rate 18, temperature 98.2, pulse o ximetry 93%. GENERAL: Noted to be awake, supine, comfortable, not in distress. SKIN: Adequate turgor. HEENT: Pinkish conjunctivae, anicteric sclerae. NECK: No neck mass, no carotid bruits, no JVD. CHEST: No deformities. LUNGS: Clear breath sounds, no wheezing, no crackles. HEART: Normal sinus rhythm. No murmurs, no gallops, no rubs. ABDOMEN: Globular, soft, nontender, no masses. EXTREMITIES: No edema. Positive for medial right malleolus ulceration. MEDICATIONS: Medications of 06/29/2017 reviewed. LABORATORY DATA: Laboratories of 06/29/2017; white count 6.1, hemoglobin 10.6. Sodium 133, pot[place] m 6.6, chloride 91, carbon dioxide 26, BUN 59, creatinine 7.57, and calcium 7.7. ASSESSMENT AND PLAN: 1. Hyperkalemia - I have adjusted the potassium bath. The plan is to use 1-0 potassium bath on the first hour. On the next 3 hours, we will change it to 2-0 potassium bath. Please note that I have d ecided to extend his dialysis from 3-1/2-4 hours due to the persistent hyperkalemia. 2. Right medial malleolus ulceration - currently on IV antibiotics. In addition, this patient is be ing given pain meds. I have reviewed the pain meds and [facility] [place].
[2017-06-29] MEDS ORDERED: HYDROcodone/Acetaminophen 5/325 mg Tablet PO SCH (09:45)
--- NOTE | 2017-06-29 10:48 | PDOC.PN ---
- Subjective Encounter Start Date: 06/29/17 Encounter Start Time: 09:00 pt seen in dialysis, today has high potassium, no fever has leg pain - Objective Resuscitation Status: Resuscitation Status FULL:Full Resuscitation MAR Reviewed: Yes Vital Signs & Weight: Vital Signs (12 hours) Temp Pulse Resp BP Pulse Ox 06/29/17 07:00 98.2 F 67 18 170/91 H 93 L 06/29/17 03:50 98 F 65 18 144/81 H 95 Weight Admit Weight 197 lb 1.6 oz Weight 201 lb I&O: 06/28/17 06/29/17 06/30/17 06:59 06:59 06:59 Intake Total 980 1460 Balance 980 1460 Result Diagrams: 06/29/17 03:57 06/29/17 03:57 Additional Labs: Accuchecks 06/28/17 06/28/17 06/28/17 19:34 16:11 11:10 POC Glucose 92 105 102 Phys Exam - Physical Examination Constitutional: NAD HEENT: PERRLA, moist MMs, sclera anicteric Neck: no JVD, supple Respiratory: no wheezing, no rales, no rhonchi Cardiovascular: RRR, no significant murmur, no rub Gastrointestinal: soft, non-tender, no distention, positive bowel sounds Musculoskeletal: no edema, pulses present bilateral venous ulcer with dressing Neurological: non-focal, normal sensation, moves all 4 limbs Psychiatric: normal affect, A&O x 3 Skin: no rash, normal turgor Dx/Plan (1) Bilateral cellulitis of lower leg Code(s): L03.116 - CELLULITIS OF LEFT LOWER LIMB; L03.115 - CELLULITIS OF RIGHT LOWER LIMB Status: Acute (2) Diabetic foot infection Code(s): E11.628 - TYPE 2 DIABETES MELLITUS WITH OTHER SKIN COMPLICATIONS; L08.9 - LOCAL INFECTION OF THE SKIN AND SUBCUTANEOUS TISSUE, UNSP Status: Acute (3) Hyperkalemia Code(s): E87.5 - HYPERKALEMIA Status: Acute (4) Anemia of renal disease Code(s): D63.1 - ANEMIA IN CHRONIC KIDNEY DISEASE Status: Chronic (5) Chronic ulcer of leg Code(s): L97.909 - NON-PRS CHRONIC ULC UNSP PRT OF UNSP LOW LEG W UNSP SEVERITY Status: Chronic Comment: (6) DM type 2 (diabetes mellitus, type 2) Status: Chronic (7) ESRD (end stage renal disease) on dialysis Code(s): N18.6 - END STAGE RENAL DISEASE; Z99.2 - DEPENDENCE ON RENAL DIALYSIS Status: Chronic (8) HTN (hypertension) Code(s): I10 - ESSENTIAL (PRIMARY) HYPERTENSION Status: Chronic Qualifiers: (9) Obesity (BMI 30.0-34.9) Code(s): E66.9 - OBESITY, UNSPECIFIED Status: Chronic (10) PVD (peripheral vascular disease) Code(s): I73.9 - PERIPHERAL VASCULAR DISEASE, UNSPECIFIED Status: Chronic (11) Secondary hyperparathyroidism of renal origin Code(s): N25.81 - SECONDARY HYPERPARATHYROIDISM OF RENAL ORIGIN Status: Chronic - Plan cont current plan of care, continue antibiotics * today HD * will repeat labs tomorrow * continue levaquin and clindamycin * wound care. * expecting discharge tomorrow * medication reviewed as below * symptomatic treatment Review of Systems - Review of Systems Eyes: negative: Pain, Vision Change, Conjunctivae Inflammation, Eyelid Inflammation, Redness, Other ENT: negative: Ear Pain, Ear Discharge, Nose Pain, Nose Discharge, Nose Congestion, Mouth Pain, Mouth Swelling, Throat Pain, Throat Swelling, Other Respiratory: negative: Cough, Dry, Shortness of Breath, Hemoptysis, SOB with Excertion, Pleuritic Pain, Sputum, Wheezing Cardiovascular: negative: chest pain, palpitations, orthopnea, paroxysmal nocturnal dyspnea, edema, light headedness, other Gastrointestinal: negative: Nausea, Vomiting, Abdominal Pain, Diarrhea, Constipation, Melena, Hematochezia, Other Genitourinary: negative: Dysuria, Frequency, Incontinence, Hematuria, Retention , Other Musculoskeletal: negative: Neck Pain, Shoulder Pain, Arm Pain, Back Pain, Hand Pain, Leg Pain, Foot Pain, Other Skin: negative: Rash, Lesions, Dallin, Bruising, Other - Medications/Allergies Allergies/Adverse Reactions: Allergies Allergy/AdvReac Type Severity Reaction Status Date / Time Cephalosporins Allergy Severe Unverified 06/26/17 23:38 povidone-iodine Allergy Verified 06/26/17 23:38 [From Betadine] soap [From Betadine] Allergy Verified 06/26/17 23:38 vancomycin Allergy Unverified 04/22/18 23:38 Medications: Current Medications Acetaminophen (Tylenol) 650 mg PO Q4H PRN PRN Reason: Headache/Fever or Pain Hydrocodone Bitart/Acetaminophen ([place] 5/325) 1 tab PO Q4H PRN PRN Reason: Moderate Pain (4-6) Last Admin: 06/29/17 06:28 Dose: 1 tab Hydrocodone Bitart/Acetaminophen ([place] 5/325) 1 tab PO NOW [facility] Stop: 06/29/17 11:00 Last Admin: 06/29/17 09:43 Dose: 1 tab Al Hydroxide/Mg Hydroxide (Maalox) 30 ml PO Q6H PRN PRN Reason: Heartburn or Indigestion Calcium Carbonate (Tums) 1,000 mg PO Q4H PRN PRN Reason: Heartburn or Indigestion Calcium Carbonate (Tums) 1,000 mg PO TID [facility] Last Admin: 06/28/17 20:22 Dose: 1,000 mg Cholecalciferol (Vitamin D3) 2,000 units PO DAILY [facility] Last Admin: 06/28/17 07:43 Dose: 2,000 units Clindamycin Phosphate/Dextrose (Cleocin) 300 mg IVPB 0300,0900,1500,2100 [facility] Last Admin: 06/29/17 02:05 Dose: 300 mg Clonidine (Catapres) 0.1 mg PO BID [facility] Last Admin: 06/28/17 20:22 Dose: 0.1 mg Dextrose/Water (Dextrose 50%) 25 gm SLOW IVP PRN PRN PRN Reason: Hypoglycemia Famotidine (Pepcid) 20 mg PO Q2DAYS@0900 [facility] Last Admin: 06/28/17 07:43 Dose: 20 mg Ferrous Sulfate (Feosol) 325 mg PO QA-[facility] Last Admin: 06/28/17 07:44 Dose: 325 mg Glucagon (Glucagon) 1 mg IM PRN PRN PRN Reason: Hypoglycemia Guaifenesin (Robitussin Sf) 200 mg PO Q4H PRN PRN Reason: Cough Heparin Sodium (Porcine) (Heparin) 5,000 units SC BID [facility] Last Admin: 06/28/17 20:23 Dose: 5,000 units Hydralazine HCl (Apresoline) 10 mg SLOW IVP Q4H PRN PRN Reason: Systolic BP > 180 Levofloxacin 500 mg/ Device 100 mls @ 100 mls/hr IVPB Q2DAYS@0800 [facility] Last Admin: 06/28/17 07:37 Dose: 100 mls Dextrose/Water (D5w) 1,000 mls @ 0 mls/hr IV .Q0M PRN; As Directed PRN Reason: Hypoglycemia Insulin Human Lispro (Humalog) 0 units SC .MILD SLIDING SCALE PRN PRN Reason: Mild Correctional Scale Insulin Human Lispro (Humalog) 0 units SC .BEDTIME SLIDING SC PRN PRN Reason: Bedtime Correctional Scale Loperamide HCl (Imodium) 2 mg PO PRN PRN PRN Reason: Diarrhea/Loose Stools Magnesium Hydroxide (Milk Of Magnesium) 30 ml PO DAILYPRN PRN PRN Reason: Constipation Last Admin: 06/28/17 09:41 Dose: 30 ml Mineral Oil/White Petrolatum (Eucerin Cream) 0 gm TOP BIDPRN PRN PRN Reason: Dry Skin Minoxidil (Minoxidil) 10 mg PO TID [facility] Last Admin: 06/28/17 20:22 Dose: 10 mg Miscellaneous Medication (Pharmacy To Dose) 1 each IVPB .LEVAQUIN CLINDAMYCI PRN PRN Reason: Pharmacy to dose Ondansetron HCl (Zofran Odt) 4 mg PO Q6H PRN PRN Reason: Nausea/Vomiting Ondansetron HCl (Zofran) 4 mg IVP Q6H PRN PRN Reason: Nausea/Vomiting Phenol (Chloraseptic [place] 180 Ml Bot) 0 ml PO PRN PRN PRN Reason: Sore Throat Polyethylene Glycol (Miralax) 17 gm PO [facility] Saccharomyces Boulardii (Florastor) 250 mg PO DAILY [facility] Last Admin: 06/28/17 07:43 Dose: 250 mg Senna (Senokot) 2 tab PO HSPRN PRN PRN Reason: Constipation Last Admin: 06/28/17 21:57 Dose: 2 tab Sevelamer Carbonate (Renvela) 4,000 mg PO TID-[facility] Last Admin: 06/28/17 17:26 Dose: 4,000 mg Sodium Chloride ([place] Nasal [place] 0.65%) 0 ml EA NARE QIDPRN PRN PRN Reason: Nasal Congestion Sodium Chloride (Flush - Normal Saline) 10 ml IVF Q12HR [facility] Last Admin: 04/24/18 20:25 Dose: 10 ml Sodium Chloride (Flush - Normal Saline) 10 ml IVF PRN PRN PRN Reason: Saline Flush Vitamin B Complex/Vit C/Folic Acid (Nephro-Parvin Tablet) 1 tab PO DAILY [facility] Last Admin: 06/28/17 07:43 Dose: 1 tab Zolpidem Tartrate (Ambien) 5 mg PO HSPRN PRN PRN Reason: Insomnia Last Admin: 06/28/17 01:08 Dose: 5 mg
[2017-06-29] MEDS: Saccharomyces boulardii 250 MG CAP PO SCH (15:35)
[2017-06-29] MEDS: Polyethylene Glycol 3350 17 GM Packet PO SCH (15:35)
[2017-06-29] MEDS: Folic Acid/Vit B Comp W-C PO SCH (15:35)
[2017-06-29] MEDS: Milk Of Magnesia 30 ML UDCUP PO PRN (15:35)
[2017-06-30] MEDS: HYDROcodone/Acetaminophen 5/325 mg Tablet PO PRN ×2 (00:41→08:09)
[2017-06-30] MEDS: Clindamycin/D5W 300 MG/50 ML BAG IVPB SCH ×4 (03:16→20:57)
[2017-06-30 05:01] LABS: Albumin 3.6 g/dL (3.5-5.0); Anion Gap 16 mmol/L (10-20); BUN (Urea Nitrogen) 31 mg/dL (8.4-25.7); BUN/Creatinine Ratio 5.82; CRP (Inflammatory) 3.71 mg/dL (= or < 0.5); Calc. Creatinine Clearance 21 mL/min (70-130); Calcium 8.1 mg/dL (7.8-10.44); Carbon Dioxide 31 mmol/L (22-29); Chloride 93 mmol/L (98-107); Estimated GFR-MDRD 11; Glucose 102 mg/dL (70-105); Phosphorus 3.9 mg/dL (2.3-4.7); Potassium 4.9 mmol/L (3.5-5.1); Sodium 135 mmol/L (136-145)
[2017-06-30 05:17] LABS: Band 1 % (5-11); Hemoglobin 10.7 g/dL (14.0-18.0); Lymphocytes 13 % (21-51); MDiff Complete? YES; Mean Corpuscular HGB CONC 32.5 g/dL (32.0-36.0); Mean Corpuscular Hemoglobin 30.8 pg (27.0-31.0); Mean Corpuscular Volume 94.6 fl (80.0-94.0); Mean Platelet Volume 7.9 fL (7.4-10.4); Monocytes 18 % (0-10); Neutrophil 67 % (42-75); Platelet Count 126 thou/uL (130-400); RBC Distribution Width 15.7 % (11.5-14.5); Red Blood Cell (RBC) Count 3.48 mill/uL (4.70-6.10)
[2017-06-30] MEDS: Heparin 5,000 UNITS/ML VIAL SC SCH ×2 (08:05→20:58)
[2017-06-30] MEDS: Saccharomyces boulardii 250 MG CAP PO SCH (08:06)
[2017-06-30] MEDS: cloNIDine 0.1 MG TAB PO SCH ×2 (08:06→20:56)
[2017-06-30] MEDS: Calcium Carbonate 500 MG ChewTAB PO SCH ×3 (08:06→20:57)
[2017-06-30] MEDS: Ferrous Sulfate 325 MG TAB PO SCH (08:06)
[2017-06-30] MEDS: Folic Acid/Vit B Comp W-C PO SCH (08:06)
[2017-06-30] MEDS: Sevelamer Carbonate 800 MG TAB PO SCH ×3 (08:06→17:27)
[2017-06-30] MEDS: Famotidine 20 MG TAB PO SCH (08:06)
[2017-06-30] MEDS: Polyethylene Glycol 3350 17 GM Packet PO SCH (08:07)
[2017-06-30] MEDS ORDERED: HYDROcodone/Acetaminophen 5/325 mg Tablet PO SCH (10:00)
[2017-06-30] MEDS: HYDROcodone/Acetaminophen 10/325 mg Tablet PO SCH ×4 (10:41→20:59)
[2017-06-30] MEDS: Minoxidil 10 MG TAB PO SCH ×3 (10:41→20:56)
--- NOTE | 2017-06-30 11:01 | PRG ---
DATE OF SERVICE: 06/30/2017 SUBJECTIVE: Mr. Ugo Whitehead is a 51-year-old old male with ESRD and admitted for nonhea ling foot ulcers. He continues to have severe pain on the right foot. He has been empirically treat ed with IV antibiotics. He is getting [place] now every 4 hours. No complaints of chest pain or short ness of breath. OBJECTIVE: VITAL SIGNS: Blood pressure 167/100, heart rate 68, respiratory rate 16, temperature 98.2, pulse ox 94%. GENERAL EXAM: Awake, alert, comfortable, in moderate pain. SKIN: Adequate turgor. HEENT: He has slightly pale conjunctivae, anicteric sclerae. NECK: No neck mass, no carotid bruits, no JVD. CHEST: No deformities. LUNGS: Clear breath sounds. HEART: Normal sinus rhythm. No murmur, no gallops, no rubs. ABDOMEN: Globular, soft, nontender, no masses. EXTREMITIES: Right medial malleolus ulceration. Medications of 06/30/2017 reviewed. LABORATORY DATA: Laboratories 06/30/2017, white count 5, hemoglobin 10.7. Sodium 135, potassium 4.9 , chloride 93, carbon dioxide 31, BUN 31, creatinine 5.33, glucose 102, phosphorus 3.9, albumin 3.6. ASSESSMENT AND PLAN: 1. Right foot ulcerations - we will consult Surgery. Increase [place] to 10 mg q.4 hours. Rule out i schemic right foot. 2. End-stage renal disease, stable. Continuing Tuesday, Tuesday, Tuesday hemodialysis. Tolerating said treatment. Fluid removal only as tolerated. Avoiding heparin use for the moment. 3. Borderline anemia. Continue to observe. Recheck basic metabolic panel and CBC in a.m.
--- NOTE | 2017-06-30 14:25 | PDOC.PN ---
- Subjective Encounter Start Date: 06/30/17 Encounter Start Time: 10:50 -: old records requested/rev Pt seen and examined, chart reviewe din its entirety, this is my first visit with this patient. Hx PVD, worked on by Dr htapa in the past, last documented here in 2016. admitted 4 days ago with bilateral foot pain, swelling, and ulceration. Hx ESRd on HD followed by Dr Peres. Dr Peres saw earlier, consulted Dr Thapa to [facility] for PVD. No f/c, no n/V/D/c, only complaint is BLE pain 10 point ROS performed and neg for all systems except as per HPI - Objective Resuscitation Status: Resuscitation Status FULL:Full Resuscitation MAR Reviewed: Yes Vital Signs & Weight: Vital Signs (12 hours) Temp Pulse Resp BP BP Pulse Ox 06/30/17 12:00 98.1 F 61 16 130/74 94 L 06/30/17 08:06 167/100 H 06/30/17 08:00 98.3 F 68 16 167/100 H 94 L 06/30/17 05:50 98.5 F 63 18 144/76 H 100 Weight Admit Weight 197 lb 1.6 oz Weight 201 lb I&O: 06/29/17 06/30/17 07/01/17 06:59 06:59 06:59 Intake Total 1460 1800 480 Balance 1460 1800 480 Result Diagrams: 06/30/17 03:28 06/30/17 03:28 Additional Labs: Accuchecks 06/30/17 06/30/17 06/29/17 11:32 05:06 19:48 POC Glucose 97 88 110 06/29/17 06/29/17 16:07 12:30 POC Glucose 112 H 93 Radiology Reviewed by me: Yes EKG Reviewed by me: Yes Phys Exam - Physical Examination Constitutional: NAD HEENT: PERRLA, moist MMs, sclera anicteric, oral pharynx no lesions Neck: no nodes, no JVD, supple, full ROM Respiratory: no wheezing, no rales, no rhonchi, clear to auscultation bilateral Cardiovascular: RRR, no significant murmur, no rub Gastrointestinal: soft, non-tender, no distention, positive bowel sounds Musculoskeletal: edema present BLE warm. ulceration to R lateral ankle exmained, posteriorly has liqufact Neurological: non-focal, normal sensation, moves all 4 limbs Lymphatic: no nodes Psychiatric: normal affect, A&O x 3 Deviation from normal: ulceratiosn examined, left post thigh with verrucous lesion conc for SqCCA Dx/Plan (1) Ischemic ulcer of ankle Code(s): L97.309 - NON-PRESSURE CHRONIC ULCER OF UNSP ANKLE WITH UNSP SEVERITY Status: Acute (2) Bilateral cellulitis of lower leg Code(s): L03.116 - CELLULITIS OF LEFT LOWER LIMB; L03.115 - CELLULITIS OF RIGHT LOWER LIMB Status: Acute (3) Hyperkalemia Code(s): E87.5 - HYPERKALEMIA Status: Acute (4) Anemia of renal disease Code(s): D63.1 - ANEMIA IN CHRONIC KIDNEY DISEASE Status: Chronic (5) DM type 2 (diabetes mellitus, type 2) Status: Chronic (6) ESRD (end stage renal disease) on dialysis Code(s): N18.6 - END STAGE RENAL DISEASE; Z99.2 - DEPENDENCE ON RENAL DIALYSIS Status: Chronic (7) HTN (hypertension) Code(s): I10 - ESSENTIAL (PRIMARY) HYPERTENSION Status: Chronic Qualifiers: (8) Obesity (BMI 30.0-34.9) Code(s): E66.9 - OBESITY, UNSPECIFIED Status: Chronic (9) PVD (peripheral vascular disease) Code(s): I73.9 - PERIPHERAL VASCULAR DISEASE, UNSPECIFIED Status: Chronic (10) Secondary hyperparathyroidism of renal origin Code(s): N25.81 - SECONDARY HYPERPARATHYROIDISM OF RENAL ORIGIN Status: Chronic - Plan cont current plan of care, continue antibiotics * . follow up on Dr thapa's recs, continue abx, locla wound care. wound worsening due to PVD, not amenable to debridement, due to creating a lerger non-healing wound
[2017-06-30] MEDS ORDERED: Calcium Carbonate 500 MG ChewTAB PO SCH (16:30)
--- NOTE | 2017-07-01 01:19 | CON ---
DATE OF CONSULTATION: 06/30/2017 HISTORY OF PRESENT ILLNESS: This is a 51-year-old gentleman with end-stage renal disease, type 2 freedom betes mellitus, hypertension, coronary artery disease, and nonhealing wounds on his lower extremities , right worse than left. The patient is a poor historian, but evidently has had wounds for at least a month. He has previous intervention on his left anterior tibial and posterior tibial in 2016 and e ventually healed the wound in this leg. He now has a rather large wound over the medial aspect of hi s right ankle with probable underlying exposed malleolus. SOCIAL HISTORY: The patient is a nonsmoker. He has very poor vision in both eyes. PAST SURGICAL HISTORY: Coronary artery bypass grafting and AV access right arm. PHYSICAL EXAMINATION: GENERAL: Alert gentleman in no distress. NECK: No JVD, no carotid bruits. CARDIAC: Regular rate and rhythm. Soft systolic murmur, right upper sternal border could be consist ent with aortic sclerosis or stenosis. ABDOMEN: Nontender, nondistended. EXTREMITIES: He has palpable femoral pulses and unable to palpate any distal pulses. He has at leas t biphasic dorsalis pedis pulses bilaterally. He has scaly skin both lower extremities below the kne e, suggesting some chronic venous insufficiency. He has about a 2 cm diameter wound over the right m edial malleolus with shaggy exudate and a 1 cm small area of eschar over the distal anterior left leg . PLAN: At this time is for angiography and I have discussed this with the patient to see if there is anything that can be done in regards to the circulation in the right foot.
[2017-07-01] MEDS: HYDROcodone/Acetaminophen 10/325 mg Tablet PO SCH ×5 (02:36→20:39)
[2017-07-01] MEDS: Clindamycin/D5W 300 MG/50 ML BAG IVPB SCH ×4 (04:12→20:20)
[2017-07-01 05:03] LABS: Anion Gap 20 mmol/L (10-20); BUN (Urea Nitrogen) 44 mg/dL (8.4-25.7); Calc. Creatinine Clearance 16 mL/min (70-130); Calcium 8.3 mg/dL (7.8-10.44); Carbon Dioxide 28 mmol/L (22-29); Chloride 92 mmol/L (98-107); Estimated GFR-MDRD 8; Glucose 91 mg/dL (70-105); Potassium 5.5 mmol/L (3.5-5.1); Sodium 134 mmol/L (136-145)
[2017-07-01 06:11] LABS: Band 3 % (5-11); Eosinophils 1 % (0-10); Hemoglobin 10.9 g/dL (14.0-18.0); Lymphocytes 16 % (21-51); MDiff Complete? YES; Mean Corpuscular HGB CONC 32.2 g/dL (32.0-36.0); Mean Corpuscular Hemoglobin 30.5 pg (27.0-31.0); Mean Corpuscular Volume 94.7 fl (80.0-94.0); Mean Platelet Volume 7.5 fL (7.4-10.4); Monocytes 25 % (0-10); Neutrophil 55 % (42-75); Platelet Count 132 thou/uL (130-400); RBC Distribution Width 15.8 % (11.5-14.5); Red Blood Cell (RBC) Count 3.56 mill/uL (4.70-6.10); White Blood Cell (WBC) Count 4.4 thou/uL (4.8-10.8)
[2017-07-01] MEDS: Ferrous Sulfate 325 MG TAB PO SCH (08:00)
[2017-07-01] MEDS: Folic Acid/Vit B Comp W-C PO SCH (09:00)
[2017-07-01] MEDS: Minoxidil 10 MG TAB PO SCH ×3 (09:00→20:21)
[2017-07-01] MEDS: Polyethylene Glycol 3350 17 GM Packet PO SCH (09:00)
[2017-07-01] MEDS: Saccharomyces boulardii 250 MG CAP PO SCH (09:00)
[2017-07-01] MEDS: Sevelamer Carbonate 800 MG TAB PO SCH ×3 (09:27→17:24)
[2017-07-01] MEDS: Calcium Carbonate 500 MG ChewTAB PO SCH ×3 (09:27→20:21)
[2017-07-01] MEDS ORDERED: Epoetin (ESRD) 20,000 UNITS/ML SC SCH (09:30)
--- NOTE | 2017-07-01 09:45 | PRG ---
DATE OF SERVICE: 07/01/2018 SUBJECTIVE: Mr. Ugo Whitehead is a 51-year-old male with ESRD and currently undergoing he modialysis. I am at the bedside supervising his hemodialysis. He is tolerating said treatment. He was also evaluated by surgery regarding the nonhealing medial malleolus. Concern is he may have sign ificant peripheral vascular disease. He has been complaining of right foot pain for the last several days. Please note [facility] Joseph has been increased. Denies any chest pain or shortness of breath. PHYSICAL EXAMINATION: VITAL SIGNS: Blood pressure is 135/71, heart rate in 86, respiratory rate 20, temperature 97.6, puls e ox 95%. GENERAL: Awake, seen lying comfortable, not in overt distress. SKIN: Adequate turgor. HEENT: He has pinkish conjunctivae, anicteric sclerae. NECK: No neck mass, no carotid bruits, no JVD. CHEST: No deformities. LUNGS: Clear breath sounds. HEART: Normal sinus rhythm. No murmur, no gallops, no rubs. ABDOMEN: Globular, soft, nontender, no masses. EXTREMITIES: No edema, no deformities. Positive for right medial malleolus ulcer, nonhealing. MEDICATIONS: 07/01/2017 - Reviewed. LABORATORY: 07/01/2017 - White count 4.4, hemoglobin 10.9, hematocrit 33.7, sodium 134, potassium 5. 5, chloride 92, carbon dioxide 28, BUN 44, creatinine 6.89, glucose 91, calcium 8.3. ASSESSMENT AND PLAN: 1. End-stage renal disease, continuing Tuesday, Tuesday, Tuesday dialysis. Fluid removal as tolerat ed by the patient. The patient is tolerating said treatment. Continue Tuesday, Tuesday, Tuesday freedom lysis. 2. Right medial malleolus ulceration - nonhealing wound on IV antibiotics. Surgery has been consult ed. A planned angiogram of the right lower extremity has been contemplated. This patient may have u nderlying ischemic leg disease. 3. Borderline anemia. We will initiate Epogen 7500 units every week. 4. Right foot pain much improved with increased dose of Saint Joseph. I agree with current management. Recheck base met and CBC in a.m.
[2017-07-01] MEDS: cloNIDine 0.1 MG TAB PO SCH ×2 (12:15→20:21)
[2017-07-01] MEDS: Heparin 5,000 UNITS/ML VIAL SC SCH ×2 (12:15→20:20)
[2017-07-01] MEDS ORDERED: Lidocaine 1% (PF) 30 ML VIAL ONE (13:29)
[2017-07-01] MEDS ORDERED: Iopamidol 370 76% 50 ML VIAL FS ONE (13:52)
[2017-07-01] MEDS ORDERED: Heparin 10,000 UNITS/1 ML VIAL ONE ×2 (14:22→14:45)
[2017-07-01] MEDS ORDERED: Protamine Sulfate 50 MG/5 ML VIAL ONE ×2 (14:56→15:14)
--- NOTE | 2017-07-01 15:54 | OP ---
PREOPERATIVE DIAGNOSES: Large ischemic ulcer, right medial malleolus and small ulcer left lower tibi al area. POSTOPERATIVE DIAGNOSES: Large ischemic ulcer, right medial malleolus and small ulcer left lower tib ial area. FINDINGS: The patient had heavily calcified vessels throughout with no occlusive lesions in his ayesha c or common femoral segments. On the left leg, the patient demonstrated patent proximal superficial femoral artery with minimal atherosclerosis. His popliteal artery had diffuse moderate disease of ab out 50% in two areas. His anterior tibial had a complex stenosis involving the tibioperoneal trunk, proximal area of about 70%-90% with occlusion of the anterior tibial artery in the distal third of th e calf and then reconstituting. The tibioperoneal trunk then fed posterior tibial artery, which was occluded shortly after its origin in the midcalf and then the peroneal artery had about a 70% proxima l stenosis and then more critical disease above the ankle with no single vessel patent all the way in to the foot. On the right, superficial femoral artery was widely patent proximally with about a 30% stenosis at the adductor canal. The popliteal artery had about a 70% stenosis just above the knee andriy int prior to giving off the geniculate arteries. The popliteal artery otherwise had some mild distal disease with the anterior tibial artery being occluded shortly after its origin and not visualizing significantly. The tibioperoneal trunk had a 70% stenosis at the takeoff of the posterior tibial and involving the origin of the peroneal with the peroneal artery being a good vessel distally in the po sterior tibial artery being occluded. The peroneal was then patent all the way to the level of the a nkle where it did give collaterals off to the ankle region. However, the anterior tibial did not vis ualize and the posterior tibial visualized at left side in the lower leg. FLUOROSCOPY: 5.5 minutes. CONTRAST: 37 mL. PROCEDURE: The left common femoral artery was punctured with a needle after ultrasound guidance, but was calcified at the puncture site. A 5-Tongan dilator and sheath were placed. Retrograde angiogra phy of the left leg was obtained. A Contra catheter was then placed and iliofemoral angiography obta ined, following which a Contra catheter was directed into the right common femoral and the Contra cat heter then directed over the wire and runoff of the right leg was obtained. A 6-Tongan destination s [place] was then placed over this wire into the common femoral artery from left to right as 7500 units of heparin were given and then a 5000 additional dose to get a good ACT level. The long Bentson cath eter was then advanced over the wire following which an 0.014 loose wire was advanced down the perone al artery. The peroneal artery was then dilated with a 3 x 60 mm balloon for 3 minutes with some imp rovement in the stenosis and then the popliteal artery was then dilated with a 5 mm x 4 cm balloon fo r 3 minutes with improvement in that stenosis from about 70 to about 30%. There was brisk runoff thr ough these areas and the patient's sheath was then removed after protamine reversal.
[2017-07-01] MEDS: Acetaminophen 325 MG TAB PO PRN (20:16)
[2017-07-02] MEDS: Acetaminophen 325 MG TAB PO PRN ×2 (00:19→05:18)
[2017-07-02] MEDS: HYDROcodone/Acetaminophen 10/325 mg Tablet PO SCH ×7 (01:32→20:47)
[2017-07-02] MEDS: Clindamycin/D5W 300 MG/50 ML BAG IVPB SCH ×4 (02:43→20:27)
[2017-07-02 04:18] LABS: Anion Gap 18 mmol/L (10-20); BUN (Urea Nitrogen) 29 mg/dL (8.4-25.7); Calc. Creatinine Clearance 20 mL/min (70-130); Calcium 8.5 mg/dL (7.8-10.44); Carbon Dioxide 26 mmol/L (22-29); Chloride 96 mmol/L (98-107); Estimated GFR-MDRD 11; Glucose 89 mg/dL (70-105); Potassium 5.1 mmol/L (3.5-5.1); Sodium 135 mmol/L (136-145)
[2017-07-02 04:30] LABS: Hemoglobin 11.2 g/dL (14.0-18.0); Lymphocytes 18 % (21-51); MDiff Complete? YES; Mean Corpuscular HGB CONC 31.9 g/dL (32.0-36.0); Mean Corpuscular Hemoglobin 30.6 pg (27.0-31.0); Mean Platelet Volume 8.3 fL (7.4-10.4); Monocytes 18 % (0-10); Neutrophil 62 % (42-75); PLT Morphology Comment Appears Decreased; Platelet Count 112 thou/uL (130-400); RBC Distribution Width 16.1 % (11.5-14.5); Reactive Lymphocytes 1 % (0-10); Red Blood Cell (RBC) Count 3.66 mill/uL (4.70-6.10)
[2017-07-02] MEDS: Calcium Carbonate 500 MG ChewTAB PO SCH ×3 (08:48→20:48)
[2017-07-02] MEDS: Ferrous Sulfate 325 MG TAB PO SCH (08:49)
[2017-07-02] MEDS: Folic Acid/Vit B Comp W-C PO SCH (08:49)
[2017-07-02] MEDS: Saccharomyces boulardii 250 MG CAP PO SCH (08:50)
[2017-07-02] MEDS: cloNIDine 0.1 MG TAB PO SCH ×2 (08:50→20:47)
[2017-07-02] MEDS: Polyethylene Glycol 3350 17 GM Packet PO SCH (08:50)
[2017-07-02] MEDS: Famotidine 20 MG TAB PO SCH (08:50)
[2017-07-02] MEDS: Sevelamer Carbonate 800 MG TAB PO SCH ×4 (08:51→18:28)
[2017-07-02] MEDS: Minoxidil 10 MG TAB PO SCH ×3 (08:51→20:47)
[2017-07-02] MEDS: Heparin 5,000 UNITS/ML VIAL SC SCH ×2 (08:56→20:48)
--- NOTE | 2017-07-02 17:56 | PDOC.PN ---
- Subjective Encounter Start Date: 07/01/17 Encounter Start Time: 15:00 pt s/p HD, to go to angiography later today. legs hurt after HD , tolerating abx and dressing. no F/c, no n/V/D/C, no CP or sOB 10 point ROs performed and neg for all systems except as above - Objective Resuscitation Status: Resuscitation Status FULL:Full Resuscitation MAR Reviewed: Yes Vital Signs & Weight: Vital Signs (12 hours) Temp Pulse Resp BP Pulse Ox 07/02/17 16:00 98.1 F 68 18 106/64 92 L 07/02/17 12:40 98.1 F 65 18 106/65 07/02/17 08:00 98.1 F 72 18 122/71 95 Weight Admit Weight 197 lb 1.6 oz Weight 201 lb I&O: 07/01/17 07/02/17 07/03/17 06:59 06:59 06:59 Intake Total 1120 550 Output Total 0 Balance 1120 550 Result Diagrams: 07/02/17 03:30 07/02/17 03:30 Additional Labs: Accuchecks 07/02/17 07/02/17 07/01/17 16:47 11:54 20:05 POC Glucose 99 121 H 93 07/01/17 12:03 POC Glucose 86 Phys Exam - Physical Examination Constitutional: NAD HEENT: PERRLA, moist MMs, sclera anicteric, oral pharynx no lesions Neck: no nodes, no JVD, supple, full ROM Respiratory: no wheezing, no rales, no rhonchi, clear to auscultation bilateral Cardiovascular: RRR, no significant murmur, no rub Gastrointestinal: soft, non-tender, no distention, positive bowel sounds unchanged, trace edema, wound dressign intact, BLE warm Neurological: non-focal, normal sensation, moves all 4 limbs Lymphatic: no nodes Psychiatric: normal affect, A&O x 3 Skin: no rash, normal turgor, cap refill <2 seconds Dx/Plan (1) Ischemic ulcer of ankle Code(s): L97.309 - NON-PRESSURE CHRONIC ULCER OF UNSP ANKLE WITH UNSP SEVERITY Status: Acute Qualifiers: Laterality: right Non-pressure ulcer stage: with fat layer exposed Qualified Code(s): L97.312 - Non-pressure chronic ulcer of right ankle with fat layer exposed Comment: Avelar 3. could benefit from HBO, local wound care. angio today and hopefully able to revascularize (2) Bilateral cellulitis of lower leg Code(s): L03.116 - CELLULITIS OF LEFT LOWER LIMB; L03.115 - CELLULITIS OF RIGHT LOWER LIMB Status: Acute (3) Hyperkalemia Code(s): E87.5 - HYPERKALEMIA Status: Acute (4) Anemia of renal disease Code(s): D63.1 - ANEMIA IN CHRONIC KIDNEY DISEASE Status: Chronic (5) DM type 2 (diabetes mellitus, type 2) Status: Chronic (6) ESRD (end stage renal disease) on dialysis Code(s): N18.6 - END STAGE RENAL DISEASE; Z99.2 - DEPENDENCE ON RENAL DIALYSIS Status: Chronic (7) HTN (hypertension) Code(s): I10 - ESSENTIAL (PRIMARY) HYPERTENSION Status: Chronic Qualifiers: (8) Obesity (BMI 30.0-34.9) Code(s): E66.9 - OBESITY, UNSPECIFIED Status: Chronic (9) PVD (peripheral vascular disease) Code(s): I73.9 - PERIPHERAL VASCULAR DISEASE, UNSPECIFIED Status: Chronic (10) Secondary hyperparathyroidism of renal origin Code(s): N25.81 - SECONDARY HYPERPARATHYROIDISM OF RENAL ORIGIN Status: Chronic - Plan * .
--- NOTE | 2017-07-02 17:59 | PDOC.PN ---
- Subjective Encounter Start Date: 07/02/17 Encounter Start Time: 13:30 angio yesterda with PCI and angioplasty x 2 with good result febrile post procedure, likely toxic radical release. better now, no current F/C, no N/V/D/C, no CP or SOB 10 pont rOS performed and neg for all systems except as above - Objective Resuscitation Status: Resuscitation Status FULL:Full Resuscitation MAR Reviewed: Yes Vital Signs & Weight: Vital Signs (12 hours) Temp Pulse Resp BP Pulse Ox 07/02/17 16:00 98.1 F 68 18 106/64 92 L 07/02/17 12:40 98.1 F 65 18 106/65 07/02/17 08:00 98.1 F 72 18 122/71 95 Weight Admit Weight 197 lb 1.6 oz Weight 201 lb I&O: 07/01/17 07/02/17 07/03/17 06:59 06:59 06:59 Intake Total 1120 550 Output Total 0 Balance 1120 550 Result Diagrams: 07/02/17 03:30 07/02/17 03:30 Additional Labs: Accuchecks 07/02/17 07/02/17 07/01/17 16:47 11:54 20:05 POC Glucose 99 121 H 93 07/01/17 12:03 POC Glucose 86 Phys Exam - Physical Examination Constitutional: NAD HEENT: PERRLA, moist MMs, sclera anicteric, oral pharynx no lesions Neck: no nodes, no JVD, supple, full ROM Respiratory: no wheezing, no rales, no rhonchi, clear to auscultation bilateral Cardiovascular: RRR, no significant murmur, no rub Gastrointestinal: soft, non-tender, no distention, positive bowel sounds Musculoskeletal: pulses present, edema present Neurological: non-focal, normal sensation, moves all 4 limbs Lymphatic: no nodes Psychiatric: normal affect, A&O x 3 Skin: no rash, normal turgor, cap refill <2 seconds Dx/Plan (1) Ischemic ulcer of ankle Code(s): L97.309 - NON-PRESSURE CHRONIC ULCER OF UNSP ANKLE WITH UNSP SEVERITY Status: Acute Qualifiers: Laterality: right Non-pressure ulcer stage: with fat layer exposed Qualified Code(s): L97.312 - Non-pressure chronic ulcer of right ankle with fat layer exposed Comment: Valentino 3. could benefit from HBO, local wound care. s/p PTC aand ballooning x 2 to RLE. follow up on wound with next dressing change (2) Bilateral cellulitis of lower leg Code(s): L03.116 - CELLULITIS OF LEFT LOWER LIMB; L03.115 - CELLULITIS OF RIGHT LOWER LIMB Status: Acute (3) Hyperkalemia Code(s): E87.5 - HYPERKALEMIA Status: Acute (4) Anemia of renal disease Code(s): D63.1 - ANEMIA IN CHRONIC KIDNEY DISEASE Status: Chronic (5) DM type 2 (diabetes mellitus, type 2) Status: Chronic (6) ESRD (end stage renal disease) on dialysis Code(s): N18.6 - END STAGE RENAL DISEASE; Z99.2 - DEPENDENCE ON RENAL DIALYSIS Status: Chronic (7) HTN (hypertension) Code(s): I10 - ESSENTIAL (PRIMARY) HYPERTENSION Status: Chronic Qualifiers: (8) Obesity (BMI 30.0-34.9) Code(s): E66.9 - OBESITY, UNSPECIFIED Status: Chronic (9) PVD (peripheral vascular disease) Code(s): I73.9 - PERIPHERAL VASCULAR DISEASE, UNSPECIFIED Status: Chronic (10) Secondary hyperparathyroidism of renal origin Code(s): N25.81 - SECONDARY HYPERPARATHYROIDISM OF RENAL ORIGIN Status: Chronic - Plan * .
[2017-07-03] MEDS: HYDROcodone/Acetaminophen 10/325 mg Tablet PO SCH ×6 (02:00→20:39)
[2017-07-03] MEDS: Clindamycin/D5W 300 MG/50 ML BAG IVPB SCH ×4 (03:13→20:36)
[2017-07-03] MEDS: Milk Of Magnesia 30 ML UDCUP PO PRN (04:44)
[2017-07-03 05:10] LABS: Anion Gap 18 mmol/L (10-20); BUN (Urea Nitrogen) 42 mg/dL (8.4-25.7); Calc. Creatinine Clearance 15 mL/min (70-130); Calcium 8.6 mg/dL (7.8-10.44); Carbon Dioxide 26 mmol/L (22-29); Chloride 92 mmol/L (98-107); Estimated GFR-MDRD 8; Glucose 79 mg/dL (70-105); Potassium 5.2 mmol/L (3.5-5.1); Sodium 131 mmol/L (136-145)
[2017-07-03] MEDS: Sevelamer Carbonate 800 MG TAB PO SCH ×3 (10:32→15:54)
[2017-07-03] MEDS: Ferrous Sulfate 325 MG TAB PO SCH (10:32)
[2017-07-03] MEDS: Saccharomyces boulardii 250 MG CAP PO SCH (10:33)
[2017-07-03] MEDS: Calcium Carbonate 500 MG ChewTAB PO SCH ×3 (10:33→20:36)
[2017-07-03] MEDS: Folic Acid/Vit B Comp W-C PO SCH (10:33)
[2017-07-03] MEDS: Polyethylene Glycol 3350 17 GM Packet PO SCH (10:33)
[2017-07-03] MEDS: Heparin 5,000 UNITS/ML VIAL SC SCH ×2 (10:33→20:37)
[2017-07-03] MEDS: cloNIDine 0.1 MG TAB PO SCH ×2 (10:33→20:36)
[2017-07-03] MEDS: Minoxidil 10 MG TAB PO SCH ×3 (11:14→20:37)
[2017-07-03] MEDS: Acetaminophen 325 MG TAB PO PRN (11:17)
[2017-07-03] MEDS: HYDROcodone/Acetaminophen 5/325 mg Tablet PO PRN (12:07)
[2017-07-03] MEDS ORDERED: diphenhydrAMINE 25 MG CAP PO PRN (13:46)
--- NOTE | 2017-07-03 13:51 | PDOC.PN ---
- Subjective Encounter Start Date: 07/03/17 Encounter Start Time: 11:10 pt with increased swellingto lower lip. complaining of BLE pain, no better after angio/PCI. Pt states same regardless of postition, but nurse called to tell me it was better with elevation no f/c, no n/V/D/c, no new complaints states lip swelling, fever after angio, fever has since resolved 10 point ROs performed and neg for all systems except as per HPI - Objective Resuscitation Status: Resuscitation Status FULL:Full Resuscitation MAR Reviewed: Yes Vital Signs & Weight: Vital Signs (12 hours) Temp Pulse Resp BP BP Pulse Ox 07/03/17 12:00 98.4 F 07/03/17 10:33 116/67 07/03/17 08:00 98.3 F 71 18 136/75 92 L 07/03/17 07:21 98.5 F 69 18 07/03/17 04:00 98.5 F 69 18 136/76 92 L Weight Admit Weight 197 lb 1.6 oz Weight 201 lb I&O: 07/02/17 07/03/17 07/04/17 06:59 06:59 06:59 Intake Total 550 450 Output Total 0 Balance 550 450 Result Diagrams: 07/02/17 03:30 07/03/17 03:58 Additional Labs: Accuchecks 07/03/17 07/03/17 07/02/17 11:05 04:37 20:41 POC Glucose 105 85 98 07/02/17 07/02/17 16:47 05:19 POC Glucose 99 96 Phys Exam - Physical Examination Constitutional: NAD HEENT: PERRLA, moist MMs, sclera anicteric, oral pharynx no lesions lower lip with edema, likely angioedema Neck: no nodes, no JVD, supple, full ROM Respiratory: no wheezing, no rales, no rhonchi, clear to auscultation bilateral Cardiovascular: RRR, no significant murmur, no rub Gastrointestinal: soft, non-tender, no distention, positive bowel sounds Musculoskeletal: edema present Neurological: non-focal, normal sensation, moves all 4 limbs Lymphatic: no nodes Psychiatric: normal affect, A&O x 3 Skin: no rash, normal turgor, cap refill <2 seconds Dx/Plan (1) Ischemic ulcer of ankle Code(s): L97.309 - NON-PRESSURE CHRONIC ULCER OF UNSP ANKLE WITH UNSP SEVERITY Status: Acute Qualifiers: Laterality: right Non-pressure ulcer stage: with fat layer exposed Qualified Code(s): L97.312 - Non-pressure chronic ulcer of right ankle with fat layer exposed Comment: Avelar 3. could benefit from HBO, local wound care. s/p PTC aand ballooning x 2 to RLE. follow up on wound with next dressing change (2) Bilateral cellulitis of lower leg Code(s): L03.116 - CELLULITIS OF LEFT LOWER LIMB; L03.115 - CELLULITIS OF RIGHT LOWER LIMB Status: Acute (3) Hyperkalemia Code(s): E87.5 - HYPERKALEMIA Status: Acute (4) Anemia of renal disease Code(s): D63.1 - ANEMIA IN CHRONIC KIDNEY DISEASE Status: Chronic (5) DM type 2 (diabetes mellitus, type 2) Status: Chronic Qualifiers: Diabetes mellitus shelter insulin use: with shelter use Diabetes mellitus complication status: with circulatory complication Diabetes mellitus complication detail: with peripheral angiopathy without gangrene Qualified Code(s): E11.51 - Type 2 diabetes mellitus with diabetic peripheral angiopathy without gangrene; Z79.4 - marine 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; Z79.4 - marine 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; Z79.4 - penitentiary (current) use of insulin; Z79.4 - penitentiary (current) use of insulin (6) ESRD (end stage renal disease) on dialysis Code(s): N18.6 - END STAGE RENAL DISEASE; Z99.2 - DEPENDENCE ON RENAL DIALYSIS Status: Chronic (7) HTN (hypertension) Code(s): I10 - ESSENTIAL (PRIMARY) HYPERTENSION Status: Chronic Qualifiers: Hypertension type: essential hypertension (8) Obesity (BMI 30.0-34.9) Code(s): E66.9 - OBESITY, UNSPECIFIED Status: Chronic (9) PVD (peripheral vascular disease) Code(s): I73.9 - PERIPHERAL VASCULAR DISEASE, UNSPECIFIED Status: Chronic (10) Secondary hyperparathyroidism of renal origin Code(s): N25.81 - SECONDARY HYPERPARATHYROIDISM OF RENAL ORIGIN Status: Chronic (11) Contrast media adverse reaction Code(s): T50.8X5A - ADVERSE EFFECT OF DIAGNOSTIC AGENTS, INITIAL ENCOUNTER Status: Acute Qualifiers: Encounter type: initial encounter Qualified Code(s): T50.8X5A - Adverse effect of diagnostic agents, initial encounter Comment: pt with iodine allergy, has PTCA with contrast, now with lower lip edema, IV solumedrol, daily predniosne, benadryl PRN, monitor - Plan * .
[2017-07-03] MEDS ORDERED: methylPREDNISolone Sod Succ/PF 125 MG/2 ML VIAL IVP SCH (14:00)
[2017-07-03] MEDS ORDERED: predniSONE 20 MG TAB PO SCH (14:00)
[2017-07-03] MEDS ORDERED: Morphine 4 MG/ML VIAL SLOW IVP SCH (14:15)
[2017-07-04] MEDS: HYDROcodone/Acetaminophen 10/325 mg Tablet PO SCH ×5 (01:13→16:53)
[2017-07-04] MEDS: Clindamycin/D5W 300 MG/50 ML BAG IVPB SCH ×2 (02:10→13:13)
[2017-07-04] MEDS: Acetaminophen 325 MG TAB PO PRN (03:31)
[2017-07-04 04:37] LABS: #Lymphocytes 0.8 thou/uL (1.20-3.40); #Monocytes 0.2 thou/uL (0.11-0.59); #Neutrophils 5.2 thou/uL (1.40-6.50); %Basophils 0.1 % (0.0-1.0); %Eosinophils 0.2 % (0.0-10.0); %Lymphocytes 13.3 % (21.0-51.0); %Monocytes 2.9 % (0.0-10.0); %Neutrophils 83.5 % (42.0-75.0); Hemoglobin 12.4 g/dL (14.0-18.0); Mean Corpuscular HGB CONC 32.5 g/dL (32.0-36.0); Mean Corpuscular Hemoglobin 30.5 pg (27.0-31.0); Mean Corpuscular Volume 93.7 fl (80.0-94.0); Mean Platelet Volume 8.4 fL (7.4-10.4); Platelet Count 143 thou/uL (130-400); RBC Distribution Width 16.2 % (11.5-14.5); Red Blood Cell (RBC) Count 4.06 mill/uL (4.70-6.10); White Blood Cell (WBC) Count 6.3 thou/uL (4.8-10.8)
[2017-07-04 05:05] LABS: Anion Gap 25 mmol/L (10-20); BUN (Urea Nitrogen) 57 mg/dL (8.4-25.7); Calc. Creatinine Clearance 12 mL/min (70-130); Calcium 8.5 mg/dL (7.8-10.44); Carbon Dioxide 21 mmol/L (22-29); Chloride 89 mmol/L (98-107); Estimated GFR-MDRD 6; Glucose 150 mg/dL (70-105); Magnesium 2.7 mg/dL (1.6-2.6); Potassium 5.9 mmol/L (3.5-5.1); Sodium 129 mmol/L (136-145)
[2017-07-04] MEDS ORDERED: predniSONE 20 MG TAB PO SCH (08:00)
--- NOTE | 2017-07-04 08:19 | PRG ---
DATE OF SERVICE: 07/04/2017 SUBJECTIVE: Mr. Whitehead is a 51-year-old black male with ESRD and currently being dialyzed. I am at the bedside supervising his dialysis. He voices no new complaints. He requested me to shorten his t reatment today for 3 hours. No complaints of chest pain or shortness of breath. Please note the skylar han has undergone angioplasty of his right lower extremity. He is feeling better. PHYSICAL EXAMINATION: VITAL SIGNS: Blood pressure is 104/63, heart rate 60, respiratory rate 20, temperature 98.1, pulse o x 93%. GENERAL: Awake, alert, comfortable, not in distress. SKIN: Adequate turgor. HEENT: Pinkish conjunctivae, anicteric sclerae. NECK: No neck mass, no carotid bruits, no JVD. CHEST: No deformities. LUNGS: Clear breath sounds, no wheezing, no crackles. HEART: Normal sinus rhythm. No murmur, no gallops or rubs. ABDOMEN: Globular, soft, nontender. No masses. EXTREMITIES: No edema. MEDICATIONS: 07/04/2017 - Reviewed. LABORATORY: 07/04/2017 - White count 6.3, hemoglobin 12.4, sodium 129, potassium 5.9, chloride 89, c arbon dioxide 21, BUN 57, creatinine 9.01, glucose 150, magnesium is 2.7, calcium is 8.5. ASSESSMENT AND PLAN: 1., End-stage renal disease, stable. Continuing Tuesday, Tuesday, Tuesday dialysis. The patient req uested to shorten his treatment to 3 hours. He tells me he is not feeling well. 2. Anemia, on maintenance Epogen. 3. Peripheral vascular disease - status post angiogram of the lower extremities and he is status pos t angioplasty. He is stable, doing well.
[2017-07-04] MEDS: Sevelamer Carbonate 800 MG TAB PO SCH ×3 (09:32→16:53)
[2017-07-04] MEDS: Ferrous Sulfate 325 MG TAB PO SCH (09:32)
[2017-07-04] MEDS: Folic Acid/Vit B Comp W-C PO SCH (09:32)
[2017-07-04] MEDS: Calcium Carbonate 500 MG ChewTAB PO SCH ×2 (09:32→13:09)
[2017-07-04] MEDS: Heparin 5,000 UNITS/ML VIAL SC SCH (09:33)
[2017-07-04] MEDS: Minoxidil 10 MG TAB PO SCH ×2 (09:33→13:05)
[2017-07-04 11:26] VITALS: BP 127/74; TEMP 97.9
[2017-07-04] MEDS: Famotidine 20 MG TAB PO SCH (12:59)
[2017-07-04] MEDS: Polyethylene Glycol 3350 17 GM Packet PO SCH (13:10)
[2017-07-04] MEDS: cloNIDine 0.1 MG TAB PO SCH (13:10)
[2017-07-04] MEDS: Saccharomyces boulardii 250 MG CAP PO SCH (13:13)
[2017-07-04] MEDS ORDERED: Clindamycin/D5W 300 MG/50 ML BAG IVPB SCH (14:00)
--- NOTE | 2017-07-05 05:16 | DIS ---
DATE OF ADMISSION: 06/26/2017 DATE OF DISCHARGE: 07/04/2017 ADMITTING PHYSICIAN: Remedios Tang MD DISCHARGING PHYSICIAN: Timmy Reynolds MD PRIMARY CARE PHYSICIAN: Leann Austin MD ADMITTING DIAGNOSES: 1. Bilateral lower extremity cellulitis with infected wound at venous ulcer site. 2. End-stage renal disease, on hemodialysis. 3. Secondary hyperparathyroidism. 4. Hypertension. 5. Anemia of renal disease. 6. Obesity with body mass index of 31. DISCHARGE DIAGNOSES: 1. Right ankle ischemic ulcer (Avelar 3). 2. Status post right popliteal artery angiogram with ballooning, 07/01/2017. 3. Bilateral cellulitis of the lower extremities. 4. Hyperkalemia (resolved). 5. Chronic illness anemia of renal disease. 6. End-stage renal disease, on hemodialysis, status post inpatient hemodialysis. 7. Diabetes mellitus type 2. 8. Malignant hypertension. 9. Obesity with body mass index of 32. 10. Peripheral vascular disease. 11. Secondary hyperparathyroidism. 12. Contrast media reaction. CONSULTATIONS: Nephrology and Vascular Surgery. PROCEDURES: Inpatient hemodialysis; and right lower extremity angiogram with ballooning, special rafa ging angiogram. HOSPITAL COURSE: This is a 51-year-old male with history of severe peripheral vascular disease; end- stage renal disease, on hemodialysis; diabetes mellitus type 2; malignant hypertension who came for e valuation of lower extremity pain. He was found to have a right ankle infected wound at a venous ulc er site. This was determined to be an ischemic ulcer formation in the right ankle that required vasc ular intervention with angiogram and ballooning. He had a lip edema, suspected to be a reaction to t he contrast media, for which he received corticosteroids with improvement of the symptoms. Despite V ascular intervention, the patient continued to complain of significant local pain that was controlled with narcotics (Hoople). He has been evaluated by Vascular Surgery today and states that the patient can be discharged safely home with close followup. The patient will be discharged today. PHYSICAL EXAMINATION: VITAL SIGNS: Blood pressure 127/74, pulse is 61, respirations 18, oxygen saturation 94% on room air, temperature 97.9 Fahrenheit. GENERAL: He appears in no distress. He is awake, alert, oriented x3. HEAD AND NECK: Pupils are reactive to light. Extraocular muscles are intact. Mucous members are mo ist. Poor dentition. The patient has still mild lip edema. No tongue edema. NECK: Supple with no JVD. CARDIOVASCULAR: Rhythm and rate are regular. No audible murmurs, rubs, gallops. PULMONARY: Clear to auscultation bilaterally. No wheezes, rhonchi, or crackles. Chest expansion is symmetric. ABDOMEN: Soft, nontender, nondistended. Positive bowel sounds. EXTREMITIES: Left ankle is covered by a surgical gauze. He has chronic skin changes due to peripher al vascular disease. No palpable edema. Range of motion is intact. SKIN: Ulcers covered by surgical gauze. Dry skin. Generalized pallor. NEUROLOGIC: Cranial nerves II-XII are grossly intact. Deep tendon reflex are normoreflexic. PSYCHIATRIC: Normal mood and affect. LABORATORY ABNORMALITIES: Hemoglobin 12.4, hematocrit 38, sodium 129, potassium 5.9, chloride 89, bi carbonate 21, BUN 57, creatinine 9, glucose 150, magnesium 2.7. DISCHARGE DISPOSITION: Home with self-care. DISCHARGE CONDITION: Fair, but high risk for re-admissions. DISCHARGE DIET: Renal and diabetic diet as tolerated. DISCHARGE ACTIVITY: Increase activity as tolerated. Avoid soaking feet in water. DISCHARGE MEDICATIONS: See medical reconciliation for details. DISCHARGE INSTRUCTIONS: The patient was instructed to return to the emergency department if the symp toms become worrisome, to take his medications as directed, and not to miss any appointments. DISCHARGE FOLLOWUP: With primary care physician within 7 days. With Vascular Surgery as needed. Time of discharge and planning, 40 minutes.
== END 2017-07-04 18:30 | disposition home or self-care (01) | DRG 252 ==
LOC: ERS 23:35 → T4-A 06-26 02:50
PROVIDERS: ADMIT Internal Medicine; ATTEND Internal Medicine
PROC: 5A1D70Z Performance of Urinary Filtration, Intermittent, Less than 6 Hours Per Day (ICD-10-PCS; 2017-06-26)
PROC: 047T3ZZ Dilation of Right Peroneal Artery, Percutaneous Approach (ICD-10-PCS; principal; 2017-07-01)
PROC: 047M3ZZ Dilation of Right Popliteal Artery, Percutaneous Approach (ICD-10-PCS; 2017-07-01)
PROC: B41FZZZ Fluoroscopy of Right Lower Extremity Arteries (ICD-10-PCS; 2017-07-01)
DX: I70.233 Atherosclerosis of native arteries of right leg with ulceration of ankle (principal); N18.6 End stage renal disease; I13.2 Hypertensive heart and chronic kidney disease with heart failure and with stage 5 chronic kidney disease, or end stage renal disease; E11.22 Type 2 diabetes mellitus with diabetic chronic kidney disease; E11.628 Type 2 diabetes mellitus with other skin complications; L03.115 Cellulitis of right lower limb; E87.5 Hyperkalemia; N25.81 Secondary hyperparathyroidism of renal origin; I25.10 Atherosclerotic heart disease of native coronary artery without angina pectoris; L97.319 Non-pressure chronic ulcer of right ankle with unspecified severity; L97.219 Non-pressure chronic ulcer of right calf with unspecified severity; I50.9 Heart failure, unspecified; D63.1 Anemia in chronic kidney disease; E66.9 Obesity, unspecified; Z68.32 Body mass index [BMI] 32.0-32.9, adult; I73.9 Peripheral vascular disease, unspecified; T50.8X5A Adverse effect of diagnostic agents, initial encounter; Y92.239 Unspecified place in hospital as the place of occurrence of the external cause; Z99.2 Dependence on renal dialysis; Z95.1 Presence of aortocoronary bypass graft; E78.5 Hyperlipidemia, unspecified; J44.9 Chronic obstructive pulmonary disease, unspecified; Z86.73 Personal history of transient ischemic attack (TIA), and cerebral infarction without residual deficits; Z88.8 Allergy status to other drugs, medicaments and biological substances; Z88.1 Allergy status to other antibiotic agents; Z91.048 Other nonmedicinal substance allergy status; Z79.899 Other long term (current) drug therapy
CPT/HCPCS: 36005; 36415; 36416; 37224; 37228; 76942; 80048; 80053; 80069; 83735; 85025; 85347; 86140; 90935; 96365; 96375; A4216; C1725; C1769; G0257; J1644; J1956; J2001; J2270; J2543; J2720; J2930; J3370; J3490; J7506; Q4081

== ENCOUNTER 2017-07-21 14:04 | Outpatient (CLI) | payer MEDICARE ==
--- NOTE | 2017-07-22 01:14 | HP ---
DATE OF SERVICE: 07/21/2017 HISTORY OF PRESENT ILLNESS: Mr. Gavin Whitehead is a very pleasant 51-year-old gentleman, r eferred to the Wound Center for evaluation of an ulceration of the right medial lower leg in the lisa on of the medial malleolus. The patient was referred to the Wound Center by Dr. Ingram, evaluation for hyperbaric oxygen therapy was requested at the time of the patient's referral to the Wound Center . The patient was recently discharged from [facility]. During the patient's hospital stay, Mr. Ugo Whitehead underwent percutaneous revascularization of the right lower extrem ity by Dr. Danny Presley. The patient states he has been dressing his wounds with gauze. The patient also has a wound of the left forefoot as well as a wound of the right lateral foot. PAST MEDICAL HISTORY: 1. Hypertension. 2. Diabetes mellitus. 3. End-stage renal disease. 4. History of cerebrovascular accident. 5. Coronary artery disease. 6. Anemia. 7. Peripheral vascular disease. PAST SURGICAL HISTORY: 1. Eye surgery. 2. Dialysis access procedures. 3. Left eye surgery x2. 4. Right eye surgery x2. 5. Coronary artery bypass grafting. 6. I&D of left foot. 7. I&D of left buttock abscess. MEDICATIONS: 1. Minoxidil. 2. Catapres. 3. Renvela. 4. Vitamin D. 5. Tums. 6. Sunburst. 7. Nephro-Parvin. 8. Iron. ALLERGIES: CEPHALOSPORINS, IODINE, VANCOMYCIN. SOCIAL HISTORY: Negative for current tobacco or ETOH use. FAMILY HISTORY: Significant for diabetes mellitus. REVIEW OF SYSTEMS: The patient's daughter states Mr. Ugo Whitehead is to undergo cardiac catheteri zation in [place] next week. PHYSICAL EXAMINATION: VITAL SIGNS: Temperature 98.5, pulse 75, respirations 16, blood pressure 121/58. Accu-Chek 96. GENERAL: A 51-year-old gentleman sitting on chair in examination room, in no acute distress. HEENT: Normocephalic, atraumatic. NECK: No nuchal rigidity. CHEST: Clear to auscultation. CARDIAC: Regular rate and rhythm. ABDOMEN: Soft. EXTREMITIES: An ulceration of the right medial lower leg in the region of the medial malleolus is pr esent. The dimensions of the wound are approximately 3.5 x 5.0 cm. Very little to no granulation ti ssue is present within the wound margins. No purulent drainage is associated with the wound. No julieta thema of the skin surrounding the wound is present. No maceration of the skin of the periwound is no fernanda. A dorsalis pedis pulse is not palpable on the right. No significant edema of the right foot or lower leg is present on exam today. Bone is visible within the wound margins on exam today. An ulc eration of the right lateral foot, which measures 4 x 11 cm is present. The ulceration is covered in its entirety by dry stable eschar. A wound of the left forefoot is present, which measures approxim ately 2.0 x 7.0 cm. Granulation tissue is present within the wound margins. No purulent drainage is associated with the wound. No erythema of the skin surrounding the wound is present. No maceration of the skin of the periwound is noted. No significant edema of the left foot is present on exam jaylene lopez. ASSESSMENT AND PLAN: 1. Multiple lower extremity wounds as described above. For the ulceration of the right medial lower leg in the region of the medial malleolus and for the wound of the left forefoot, dressing changes o f Medihoney will be initiated today. These dressing changes are to be performed every other day afte r cleansing and irrigation with the assistance of Home Health. A 4 x 4's, ABDs and Kerlix will be u tilized as secondary dressings. The patient is to return to the Wound Center in 4 days for transcuta neous oxygen mapping of the distal right lower extremity. No antibiotics will be prescribed today ba sed upon the appearance of the wounds. Recommendations in regard to hyperbaric oxygen therapy will b e made to the patient once TCOM assessment has been obtained. 2. Hypertension. 3. Diabetes mellitus. The patient's Accu-Chek in clinic today is 96. The patient has been told sophia t for optimal wound healing, his blood glucoses should remain below 150. 4. End-stage renal disease. 5. History of cerebrovascular accident. 6. Coronary artery disease. 7. Anemia. 8. Peripheral vascular disease.
== END 2017-07-21 14:05 | disposition home or self-care (01) ==
LOC: WCC 14:04
PROVIDERS: ATTEND Family Medicine
DX: E11.622 Type 2 diabetes mellitus with other skin ulcer (principal); E11.22 Type 2 diabetes mellitus with diabetic chronic kidney disease; I12.0 Hypertensive chronic kidney disease with stage 5 chronic kidney disease or end stage renal disease; N18.6 End stage renal disease; S91.302D Unspecified open wound, left foot, subsequent encounter; I25.10 Atherosclerotic heart disease of native coronary artery without angina pectoris; D64.9 Anemia, unspecified; I73.9 Peripheral vascular disease, unspecified; Z86.69 Personal history of other diseases of the nervous system and sense organs
CPT/HCPCS: 97139; 97602; G0463; 99203

== ENCOUNTER 2017-07-25 13:30 | Outpatient (CLI) | payer MEDICARE | END 2017-07-25 13:31 | disposition home or self-care (01) | LOC: WCC 13:30 | PROVIDERS: ATTEND Family Medicine | DX: E11.621 Type 2 diabetes mellitus with foot ulcer (principal); L97.929 Non-pressure chronic ulcer of unspecified part of left lower leg with unspecified severity; L97.919 Non-pressure chronic ulcer of unspecified part of right lower leg with unspecified severity; I73.9 Peripheral vascular disease, unspecified | CPT/HCPCS: 93923 ==

== ENCOUNTER 2017-08-02 11:33 | Emergency (ER) | payer MEDICARE ==
[2017-08-02] MEDS ORDERED: Morphine 4 MG/ML VIAL ONE (14:21)
[2017-08-02 14:39] LABS: #Eosinphils 0.1 thou/uL (0.0-0.7); #Monocytes 1.3 thou/uL (0.11-0.59); %Basophils 0.2 % (0.0-1.0); %Eosinophils 0.6 % (0.0-10.0); %Lymphocytes 9.7 % (21.0-51.0); %Monocytes 12.5 % (0.0-10.0); %Neutrophils 76.9 % (42.0-75.0); Hemoglobin 10.9 g/dL (14.0-18.0); Mean Corpuscular Hemoglobin 29.9 pg (27.0-31.0); Mean Corpuscular Volume 93.5 fl (80.0-94.0); Mean Platelet Volume 7.1 fL (7.4-10.4); Platelet Count 200 thou/uL (130-400); RBC Distribution Width 15.9 % (11.5-14.5); Red Blood Cell (RBC) Count 3.66 mill/uL (4.70-6.10); White Blood Cell (WBC) Count 10.4 thou/uL (4.8-10.8)
[2017-08-02 15:01] LABS: ALT (SGPT) 7 U/L (8-55); AST (SGOT) 21 U/L (5-34); Albumin 3.2 g/dL (3.5-5.0); Alkaline Phosphatase 88 U/L (40-150); Anion Gap 17 mmol/L (10-20); BUN (Urea Nitrogen) 30 mg/dL (8.4-25.7); Bilirubin, Total 1.1 mg/dL (0.2-1.2); CK (CPK) 70 U/L (30-200); CRP (Inflammatory) 5.83 mg/dL (= or < 0.5); Calc. Creatinine Clearance 0 mL/min (70-130); Calcium 7.6 mg/dL (7.8-10.44); Carbon Dioxide 28 mmol/L (22-29); Chloride 93 mmol/L (98-107); Estimated GFR-MDRD 11; Globulin 6.7 g/dL (2.4-3.5); Glucose 95 mg/dL (70-105); Potassium 4.7 mmol/L (3.5-5.1); Protein, Total 9.9 g/dL (6.0-8.3); Sodium 133 mmol/L (136-145)
--- NOTE | 2017-08-02 15:06 | RAD ---
TWO VIEWS LEFT FOOT: Date: 08-02-17 Comparison: None. History: Bilateral foot pain. Foot ulcerations. FINDINGS: Osteopenia limits detailed assessment in the region of the 2nd thru 5th metatarsal heads and the 2nd thru 5th toes. There is soft tissue swelling involving the great toe with peripheral ulceration. The lateral examination demonstrates dorsal soft tissue swelling involving the mid-fore foot. There is pr ominent enthesophyte formation at the insertion of the Achilles tendon and origin of the plantar apon eurosis. Extensive atherosclerotic calcification is seen. IMPRESSION: Soft tissue swelling suggests cellulitis. Atherosclerotic calcification noted. If there is concern for osteomyelitis, MRI Of the left foot recommended. POS: KIM
--- NOTE | 2017-08-02 15:09 | RAD ---
RIGHT FOOT TWO VIEWS: History: Foot ulcers. Bilateral foot pain. Comparison: None. FINDINGS: Tarsals appear unremarkable. There is abnormal lucency involving the head on the 3rd and 5th metatarsals. This may be artifact due to exposure, however, lysis/erosion of these heads cannot be excluded. If there is concern of osteom yelitis, recommend further evaluation with foot MRI for confirmation. No fracture and no other osseous lysis identified. IMPRESSION: Abnormal lucencies in the heads of the 3rd and 5th metatarsals. If osteomyelitis is of concern, recom mend further evaluation with foot MRI. POS: KIM
== END 2017-08-02 16:20 | disposition home or self-care (01) ==
LOC: ERS 11:33
DX: L03.116 Cellulitis of left lower limb (principal); L03.115 Cellulitis of right lower limb; L97.429 Non-pressure chronic ulcer of left heel and midfoot with unspecified severity; L97.419 Non-pressure chronic ulcer of right heel and midfoot with unspecified severity; I25.10 Atherosclerotic heart disease of native coronary artery without angina pectoris; E11.9 Type 2 diabetes mellitus without complications; E78.5 Hyperlipidemia, unspecified; I12.0 Hypertensive chronic kidney disease with stage 5 chronic kidney disease or end stage renal disease; N18.6 End stage renal disease; Z99.2 Dependence on renal dialysis; Z79.4 Long term (current) use of insulin; Z86.73 Personal history of transient ischemic attack (TIA), and cerebral infarction without residual deficits; G43.909 Migraine, unspecified, not intractable, without status migrainosus; F41.9 Anxiety disorder, unspecified; Z79.899 Other long term (current) drug therapy
CPT/HCPCS: 36415; 80053; 82550; 85025; 85652; 86140; 87040; 96374; J2270